=== PATIENT | female | born 1985 | race Caucasian/White ===

== ENCOUNTER 2017-11-06 06:13 | Day surgery (SDC) | payer OTHER, MEDICAID, SELFPAY ==
[2017-10-28 10:47] VITALS: BMI 25.0
[2017-11-06] VITALS (9 sets, daily range): BP systolic 94–142; BP diastolic 60–81; PULSE 53–87; RESP 12–20; TEMP 36.1–36.3; O2SAT 97–100; BMI 25.0
[2017-11-06] MEDS: LACTATED RINGERS 1,000 ML 42 ML IV (07:30)
--- NOTE | 2017-11-06 07:36 | PM.PREOP ---
Pre-operative Note Interval Note Pre-op Check: Yes History & Physical Reviewed by Physician Changes: No
--- NOTE | 2017-11-06 07:36 | PM.OP.1 ---
Operative Date/Time/Diagnoses Date of procedure: 11/06/17 Time of procedure: 08:00 Pre-op diagnosis: Left painful tibialis posterior tendonitis with bone fragment foot Procedure & Clinicians Indications: Painful accessory navicular and posterior tibial tendonitis left foot. Surgeon: Milagros Granados Click Yes if Unassisted: Yes Anesthesia Type: General Operative Notes Closure Type: primary Specimen(s): none sent Implants & Drains: Arthrex 2.7 anchor Estimated Blood Loss (mL): 30 Blood products transfused: none Tourniquet time (min): 53 Procedure in detail: The patient was brought to the operating room and placed on the operating table in the supine position tourniquet was placed about the thigh. Well padded appropriately aligned. After induction of general anesthesia the foot and ankle were prepped and draped in the usual aseptic manner. The tourniquet was inflated. After check of anesthesia and incision was made over the medial midfoot at the level of the prominence of the navicular. The incision was deepened through subcutaneous tissues being careful to identify and retract all vital neural and vascular structures. All bleeders were cauterized and ligated as necessary. The posterior tibial tendon insertion point at the navicular was invested within the accessory bone quite extensively. It was gently lifted from the large accessory bone and reflected away. The accessory bone was adhered and using an osteotome I was able to separate this from the larger main bone and remove the accessory. With the aid of a C-arm IA verified the remaining amount of medial navicular and decided to reduce this just a little further again with an osteotome. This also gave me an opportunity to determine the target placement for the anchor. After the insertion of the K-wire this allowed for a hole to start and the anchor was gently delivered in. It easily maintained strength and this was verified on C-arm in terms of location. The posterior tibial tendon had been interrupted due to the removal of the large bone so I was able to anchor in a portions of it with the anchor itself and then going more proximally IA used a mixture of Tycron and Prolene and Vicryl to allow for resestablishment of the tendon. The area was irrigated with copious amounts of normal sterile saline. Tourniquet was deflated, a prompt hyperemic response was seen to the foot. Deep and superficial closure was performed with Vicryl and nylon to the skin. Dressing was placed on the foot and a postoperative boot as well. She was transferred to PACU with vital signs stable and vascular status intact. Following a period of postoperative monitoring the patient will be discharged home on written and oral postoperative instructions including keeping the dressing dry and intact, avoiding ambulation to the foot x3 weeks, icing and elevating the foot when seated at home. DVT prevention techniques have been reviewed. After suture removal and approximately 3 weeks she will be able to begin some partial weight-bearing , and physical therapy starts around week 4. Complications: none Condition: stable Disposition: PACU
[2017-11-06] MEDS: CEFAZOLIN VIAL 1 GM in SODIUM CHLORIDE 0.9% 100 ML 200 ML IV (07:50)
[2017-11-06] MEDS: BUPIVACAINE 0.5% (PF) VIAL 30 ML INJ (08:15)
--- NOTE | 2017-11-06 08:19 | SUR.OPER ---
Supine on padded OR bed, head on pillow, arms secured on padded arm boards at <90 degrees abduction, legs uncrossed, safety belt at thigh, tape over blanket over lower legs.
[2017-11-06] MEDS: METOCLOPRAMIDE 10 MG/2 ML INJ IV (09:57)
[2017-11-06] MEDS: ePHEDrine 50 MG/ML VIAL 25 MG IV (10:29)
== END 2017-11-06 11:08 | disposition home or self-care (01) ==
PROVIDERS: PCP Nurse Practitioner; Visit Provider Podiatrist
PROC: (CPT 28238; principal; 2017-11-06 07:45)
DX: Q74.2 Other congenital malformations of lower limb(s), including pelvic girdle (principal); M76.822 Posterior tibial tendinitis, left leg; E06.3 Autoimmune thyroiditis; J45.909 Unspecified asthma, uncomplicated; Z87.891 Personal history of nicotine dependence
CPT/HCPCS: 28238; J0690; J1100; J2250; J2405; J2704; J2765; J3010

== ENCOUNTER 2018-02-03 10:30 | Outpatient (RCR) | payer OTHER, MEDICAID, SELFPAY ==
--- NOTE | 2017-12-04 11:55 | PT.OIE ---
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) Constipation (Acute) Fatigue (Acute) Rosacea (Acute) Weight loss, intentional (Acute) Right ankle pain (Chronic 11/08/14) Right ankle sprain (Resolved 11/08/14) Provider Visit Care Team Role Provider Type CARLOS Salomon Primary Care Provider Advanced Ticket Puller Specialty: Medical Address: [address] [place] [address], [id number] Email: Milagros Granados DPM Attending Provider Physician Specialty: Podiatry Address: [address] [place] [address], [id number] Email: [email or web address] Physical Therapy Initial Evaluation PT-OP-A Visit Information Start: 12/04/17 13:36 Freq: Status: Active Protocol: Document 12/04/17 11:55 RCC (Rec: 12/04/17 13:39 RCC [email or web address]) Out-Patient Physical Therapy Visit Information Visit Information Visit Type Initial Evaluation Visit Start Time 11:15 Visit Stop Time 11:55 Total Visit Minutes 40 Visit Number 1 Number of MANAGER OPERATIONS Visits 0 Evaluation Information Evaluation Date 12/04/17 PT-OP-B Current Condition Start: 12/04/17 13:36 Freq: Status: Active Protocol: Document 12/04/17 11:55 RCC (Rec: 12/04/17 17:52 RCC [email or web address]) Current Condition History of Current Condition Onset Date 11/06/17 Current Complaints inability to ambulate, hike History of Current Condition Pt is a 32 y/o female presenting to physical therapy s/p L modified Kidner procedure with navicular anchoring (anchor in place at navicular, surgical repair of posterior tibialis tendon). Surgery was 11/06/2017. Pt notes that she had L medial ankle and foot pain most of my life, and that it got worse as she grew older and had children. She is not currently working. Pt has been NWB in a walking boot since surgery. She uses crutches occasionally, and also uses a knee scooter. Orders to start transitioning to WB in boot, reduce use of AD as strength/ stability permits. Pt would like to get back to hiking again. She has two children but are both of age not requiring being held or carried. Treatment Goals Patient/Caregiver Goals improve walking, get back to hiking. Prior Functional Status Baseline Function- ADL's Independent Baseline Function- Mobility Independent Baseline Function- Gait indep. community ambulator without device Baseline Function- Recreation/Hobbies hiking, backpacking trips. Current Functional Impairments (Reported) Functional Limitations- Mobility/Gait using crutches or knee scooter , no weight bearing Functional Limitations- Recreation/ unable Hobbies PT-OP-C Subjective Start: 12/04/17 13:36 Freq: Status: Active Protocol: Document 12/04/17 11:55 RCC (Rec: 12/04/17 17:52 [facility] [email or web address]) OP-PT Subjective Patient Comments Patient Comments pt denies pain, she notes soreness after WB but not pain in L foot/ankle. Patient Questionnaires Lower Extremity Functional Scale LEFS Score 32 PT-OP-F Manual Assessment Start: 12/04/17 13:36 Freq: Status: Active Protocol: Document 12/04/17 11:55 RCC (Rec: 12/04/17 17:52 RCC [email or web address]) Manual Assessments Soft Tissue Assessment Soft Tissue Mobility Assessment TTP: L posterior tibialis muscle belly, plantar fascia PT-OP-G Mobility & Gait Start: 12/04/17 13:36 Freq: Status: Active Protocol: Document 12/04/17 11:55 RCC (Rec: 12/04/17 17:52 RCC [email or web address]) OP Mobility Evaluation Transfers Sit to Stand indep. NWB LLE Bed to Chair Transfers indep. OP Gait Assessment Gait Gait Assistance Required: Standby Assistance Distance (Feet) 100 Able to Maintain Weight Bearing Status Yes During Gait Assistive Devices Assistive Device Axillary Crutches Orthotic/Prosthetic Devices or Brace: Yes Gait Deviations General Gait Pattern Decreased Stride Length Decreased Feet Clearance Factors Limiting Gait Function Factors Limiting Gait Function Decreased Activity Tolerance Decreased Strength Comments Gait Comments pt able to ambulate with WB on the LLE and bilateral axillary crutches in the clinic. No pain. VC for sequencing PT-OP-H Neuro Start: 12/04/17 13:36 Freq: Status: Active Protocol: Document 12/04/17 11:55 RCC (Rec: 12/04/17 17:52 RCC [email or web address]) Sensation Evaluation Gross Sensation Gross Sensation WNL PT-OP-K Range of Motion Start: 12/04/17 13:36 Freq: Status: Active Protocol: Document 12/04/17 11:55 RCC (Rec: 12/04/17 17:52 RCC [email or web address]) Ankle and Foot Goniometric Range of Motion Ankle and Foot Measured in Degrees Right Active Ankle/Foot ROM WFL Yes Ankle and Foot ROM Limitations Comments L ankle ROM not tested due to recent surgery. PT-OP-M Strength Start: 12/04/17 13:36 Freq: Status: Active Protocol: Document 12/04/17 11:55 RCC (Rec: 12/04/17 17:52 RCC [email or web address]) Hip Strength Hip Manual Muscle Testing Left Flexion (L2) 4 Good Adduction 4 Good External Rotation 3+ Fair+ Internal Rotation 3+ Fair+ Right Flexion (L2) 5 Normal Adduction 5 Normal External Rotation 4 Good Internal Rotation 4+ Good+ Knee Strength Knee Manual Muscle Testing Left Flexion (S2) 4 Good Extension (L3) 4 Good Right Flexion (S2) 5 Normal Extension (L3) 5 Normal Ankle/Foot Strength Ankle and Foot Manual Muscle Testing Left Comments not tested due to recent surgery Right Dorsiflexion (L4) 5 Normal Inversion 5 Normal Eversion (S1) 5 Normal PT-OP-Q Treatments Start: 12/04/17 13:36 Freq: Status: Active Protocol: Document 12/04/17 11:55 RCC (Rec: 12/04/17 17:52 RCC [email or web address]) Therapeutic Exercises Sidelying Exercises toe curls Sidelying Exercise Name toe curls in walking boot Side left Comments gentle reverse clamshells Side left Reps/Minutes 10 clamshells Side left Reps/Minutes 10 Gait Training Gait Activity 1 Device Used B axillary crutches Level of Assistance SBA Surface level Distance/Duration 100 ft Treatment Focus WB on LLE in boot, posture, gait to tolerance PT-OP-T Assessment and Plan Start: 12/04/17 13:36 Freq: Status: Active Protocol: Document 12/04/17 11:55 RCC (Rec: 12/04/17 17:52 RCC [email or web address]) Physical Therapy Assessment Rehab Potential Rehabilitation Potential Excellent Evaluation Complexity Number of Personal Factors/Comorbidities 1-2 Number of Body Systems Impaired 4 or More Clinical Presentation at Evaluation Stable Impairments Impairments Activity Tolerance Balance Functional Activities Gait ROM Soft Tissue Mobility Strength Other Concerns Barriers to Rehabilitation procedure type; insurance limitations (1 eval and 24 units pcy) Goals hiking Impairment hiking/recreational activities Ceramic Painter Goal (LTG) Pt to return to low level hiking without restriction prior to d/c. LTG Duration 12 weeks ROM Ceramic Painter Goal (LTG) L ankle ROM equal to R ankle ROM (WNL) for tolerating uneven terrain prior to d/c. LTG Duration 12 weeks gait Impairment gait tolerance/ability Short Term Goal (STG) Gait in walking boot without AD. STG Duration 6 weeks Ceramic Painter Goal (LTG) Gait without AD or walking boot. LTG Duration 12 weeks LEFS Impairment Lower Extremity Functional Scale Short Term Goal (STG) 60% or greater to demonstrate improvements with functional mobility and tolerance STG Duration 6 weeks Ceramic Painter Goal (LTG) 70% or greater to demonstrate improvements with functional mobility and tolerance LTG Duration 12 weeks Assessment Summary Assessment Pt is post-operative 4 weeks L modified Kidner procedure with navicular anchoring. Pt at this point had not been WB at all on the LLE, but tolerated gait well today with B axillary crutches and WBAT. She denies pain, but demonstrates R ankle/foot impaired ROM and LE weakness due to immobility, along with impaired gait tolerance. Protocol to begin WB in boot and reduce use of AD as strength/stability permits. Unfortunately, pt has limited insurance availability for this condition, therefore, she may not be able to return to prior level of function (100%) prior to end of her insurance coverage. It is recommended that pt attend physical therapy for at least 12 weeks, but due to insurance not likely to be able to attend for that full amount of time. Pt not taking pain medication at this time. Discussed the importance of cryotherapy with elevation as gait training progresses for pain relief and control of swelling. Physical Therapy Plan Frequency and Duration Frequency of Treatment 2x/Week Duration of Treatment 12 weeks Plan of Care Start Date 12/04/17 Plan of Care End Date 02/26/18 Therapeutic Interventions Therapeutic Interventions Aquatic Therapy Balance Training Gait Training Home Exercise Program Joint Mobilizations Manual Therapy Neuromuscular Re-education Orthotic/Prosthetic Management Patient/Caregiver Education Self-Care/Home Management Soft Tissue Mobilization Taping Therapeutic Activities Therapeutic Exercises Modalities Cold Pack/Ice Massage Electric Stimulation Hot Packs Ultrasound Next Visit Focus/Plan Next Note Type Treatment Note Next Visit Plan confer with pt about MD visit; gentle ankle ROM (ABCs), gait training in walking boot.
--- NOTE | 2017-12-09 09:05 | PT.OTN ---
Current Diagnoses Pain in left foot (12/09/17) Other congenital malformations of lower limb(s), including pelvic girdle (12/09/17) Physical Therapy Treatment Note PT-OP-A Visit Information Start: 12/04/17 13:36 Freq: Status: Active Protocol: Document 12/09/17 09:05 DLM (Rec: 12/09/17 17:53 DLM [email or web address]) Out-Patient Physical Therapy Visit Information Visit Information Visit Type Treatment Note Visit Start Time 09:05 Visit Stop Time 09:55 Total Visit Minutes 50 Visit Number 2 Number of AUTOBODY TECHNICIAN Visits 0 Evaluation Information Evaluation Date 12/04/17 PT-OP-B Current Condition Start: 12/04/17 13:36 Freq: Status: Active Protocol: Document 12/04/17 11:55 RCC (Rec: 12/04/17 17:52 RCC [email or web address]) Current Condition History of Current Condition Onset Date 11/06/17 Current Complaints inability to ambulate, hike History of Current Condition Pt is a 32 y/o female presenting to physical therapy s/p L modified Kidner procedure with navicular anchoring (anchor in place at navicular, surgical repair of posterior tibialis tendon). Surgery was 11/06/2017. Pt notes that she had L medial ankle and foot pain most of my life, and that it got worse as she grew older and had children. She is not currently working. Pt has been NWB in a walking boot since surgery. She uses crutches occasionally, and also uses a knee scooter. Orders to start transitioning to WB in boot, reduce use of AD as strength/ stability permits. Pt would like to get back to hiking again. She has two children but are both of age not requiring being held or carried. Treatment Goals Patient/Caregiver Goals improve walking, get back to hiking. Prior Functional Status Baseline Function- ADL's Independent Baseline Function- Mobility Independent Baseline Function- Gait indep. community ambulator without device Baseline Function- Recreation/Hobbies hiking, backpacking trips. Current Functional Impairments (Reported) Functional Limitations- Mobility/Gait using crutches or knee scooter , no weight bearing Functional Limitations- Recreation/ unable Hobbies PT-OP-C Subjective Start: 12/04/17 13:36 Freq: Status: Active Protocol: Document 12/09/17 09:05 DLM (Rec: 12/09/17 17:53 DLM [email or web address]) OP-PT Subjective Patient Comments Patient Comments she is walking a lot better, no longer using an assistive device, her MD told her 2-3 more weeks in the boot then she can progress to shoes Patient Reported Progress Improving PT-OP-F Manual Assessment Start: 12/04/17 13:36 Freq: Status: Active Protocol: Document 12/04/17 11:55 RCC (Rec: 12/04/17 17:52 RCC [email or web address]) Manual Assessments Soft Tissue Assessment Soft Tissue Mobility Assessment TTP: L posterior tibialis muscle belly, plantar fascia PT-OP-G Mobility & Gait Start: 12/04/17 13:36 Freq: Status: Active Protocol: Document 12/09/17 09:05 DLM (Rec: 12/09/17 17:57 DLM [email or web address]) OP Mobility Evaluation Transfers Sit to Stand independent WBAT left LE, CAM boot Bed to Chair Transfers Independent, CAM boot OP Gait Assessment Gait Gait Assistance Required: Independent Able to Maintain Weight Bearing Status Yes During Gait Assistive Devices Assistive Device None Orthotic/Prosthetic Devices or Brace: Yes Gait Deviations General Gait Pattern Antalgic Factors Limiting Gait Function Factors Limiting Gait Function Decreased Activity Tolerance Decreased Strength Comments Gait Comments no pain reported with WBAT using CAM boot PT-OP-H Neuro Start: 12/04/17 13:36 Freq: Status: Active Protocol: Document 12/04/17 11:55 RCC (Rec: 12/04/17 17:52 RCC [email or web address]) Sensation Evaluation Gross Sensation Gross Sensation WNL PT-OP-K Range of Motion Start: 12/04/17 13:36 Freq: Status: Active Protocol: Document 12/04/17 11:55 RCC (Rec: 12/04/17 17:52 RCC [email or web address]) Ankle and Foot Goniometric Range of Motion Ankle and Foot Measured in Degrees Right Active Ankle/Foot ROM WFL Yes Ankle and Foot ROM Limitations Comments L ankle ROM not tested due to recent surgery. PT-OP-M Strength Start: 12/04/17 13:36 Freq: Status: Active Protocol: Document 12/04/17 11:55 RCC (Rec: 12/04/17 17:52 RCC [email or web address]) Hip Strength Hip Manual Muscle Testing Left Flexion (L2) 4 Good Adduction 4 Good External Rotation 3+ Fair+ Internal Rotation 3+ Fair+ Right Flexion (L2) 5 Normal Adduction 5 Normal External Rotation 4 Good Internal Rotation 4+ Good+ Knee Strength Knee Manual Muscle Testing Left Flexion (S2) 4 Good Extension (L3) 4 Good Right Flexion (S2) 5 Normal Extension (L3) 5 Normal Ankle/Foot Strength Ankle and Foot Manual Muscle Testing Left Comments not tested due to recent surgery Right Dorsiflexion (L4) 5 Normal Inversion 5 Normal Eversion (S1) 5 Normal PT-OP-Q Treatments Start: 12/04/17 13:36 Freq: Status: Active Protocol: Document 12/09/17 09:05 DLM (Rec: 12/09/17 17:53 DLM [email or web address]) Cardio Equipment Recumbent Stepper (Sci-Fit) Duration (Minutes) 8 Resistance 2 Seat Position 9 Other with CAM boot on left LE Therapeutic Exercises Prone Exercises 3 Prone Exercise Name hamstring curls Side left Resistance CAM boot Reps/Minutes x 10 2 Prone Exercise Name hip IR/ER Side left Resistance CAM boot Reps/Minutes x 10 1 Prone Exercise Name hip extension (SLR) Side left Resistance CAM boot Reps/Minutes x 10 Sidelying Exercises toe curls Sidelying Exercise Name toe curls in walking boot Side left Resistance active as tolerated reverse clamshells Side left Reps/Minutes 10 clamshells Side left Reps/Minutes 10 Sitting Exercises 4 Sitting Exercise Name knee extension Side left Resistance CAM boot Reps/Minutes to fatigue 3 Sitting Exercise Name calf stretch open chain with towel Side left Resistance gentle Equipment Used towel Reps/Minutes x 3 reps 2 Sitting Exercise Name ankle pumps Side left Resistance active to pain tolerance Reps/Minutes x 10 1 Sitting Exercise Name alphabet with ankle Side left Resistance active Reps/Minutes 1 set Standing Exercises 1 Standing Exercise Name standing weight shifts onto left without boot Side left Resistance active Reps/Minutes 3 sets Comments gradual progression, wide LONA and slight stagger Self-Care/Home Management Treatment Education Patient Education Home Exercise Program Safety Other Education provided written list of exercises, copy in paper chart PT-OP-R Modalities Start: 12/04/17 13:36 Freq: Status: Active Protocol: Document 12/09/17 09:05 DLM (Rec: 12/09/17 17:54 DLM [email or web address]) Hot Pack/Cold Pack Treatment Cold Pack Location left ankle/foot Patient Position Supine Treatment Duration (minutes) 10 Patient Tolerance Good Comments after activity PT-OP-T Assessment and Plan Start: 12/04/17 13:36 Freq: Status: Active Protocol: Document 12/09/17 09:05 DLM (Rec: 12/09/17 17:53 DLM [email or web address]) Physical Therapy Assessment Progress Towards Goals Progress Towards Goals Progressing Toward Goals Assessment Summary Assessment She is progressing well with her gait and tolerance for WBAT in her CAM boot. She is not longer using an assistive device. She ices at home to manage her pain/swelling at the end of the day. She tolerated her exercises well with mild increase in soreness as she fatigued. Will monitor her response to her exercise progression. Physical Therapy Plan Frequency and Duration Frequency of Treatment 2x/Week Duration of Treatment 12 weeks Plan of Care Start Date 12/04/17 Plan of Care End Date 02/26/18 Therapeutic Interventions Other Therapeutic Interventions progress per surgeon protocal/ orders Next Visit Focus/Plan Next Note Type Treatment Note Next Visit Plan gentle exercises with preparation for being progressed out of CAM boot to a shoe with or without an ankle brace
--- NOTE | 2017-12-11 11:12 | PT.OTN ---
Current Diagnoses Pain in left foot (12/11/17) Other congenital malformations of lower limb(s), including pelvic girdle (12/11/17) Physical Therapy Treatment Note PT-OP-A Visit Information Start: 12/04/17 13:36 Freq: Status: Active Protocol: Document 12/11/17 10:30 DCW (Rec: 12/11/17 11:12 DCW [id number]) Out-Patient Physical Therapy Visit Information Visit Information Visit Type Treatment Note Visit Start Time 10:30 Visit Stop Time 11:21 Total Visit Minutes 51 Visit Number 3 Number of CONTINUOUS MINING OPERATOR Visits 0 Evaluation Information Evaluation Date 12/04/17 PT-OP-B Current Condition Start: 12/04/17 13:36 Freq: Status: Active Protocol: Document 12/04/17 11:55 RCC (Rec: 12/04/17 17:52 RCC [email or web address]) Current Condition History of Current Condition Onset Date 11/06/17 Current Complaints inability to ambulate, hike History of Current Condition Pt is a 32 y/o female presenting to physical therapy s/p L modified Kidner procedure with navicular anchoring (anchor in place at navicular, surgical repair of posterior tibialis tendon). Surgery was 11/06/2017. Pt notes that she had L medial ankle and foot pain most of my life, and that it got worse as she grew older and had children. She is not currently working. Pt has been NWB in a walking boot since surgery. She uses crutches occasionally, and also uses a knee scooter. Orders to start transitioning to WB in boot, reduce use of AD as strength/ stability permits. Pt would like to get back to hiking again. She has two children but are both of age not requiring being held or carried. Treatment Goals Patient/Caregiver Goals improve walking, get back to hiking. Prior Functional Status Baseline Function- ADL's Independent Baseline Function- Mobility Independent Baseline Function- Gait indep. community ambulator without device Baseline Function- Recreation/Hobbies hiking, backpacking trips. Current Functional Impairments (Reported) Functional Limitations- Mobility/Gait using crutches or knee scooter , no weight bearing Functional Limitations- Recreation/ unable Hobbies PT-OP-C Subjective Start: 12/04/17 13:36 Freq: Status: Active Protocol: Document 12/11/17 10:30 DCW (Rec: 12/11/17 11:12 DCW [id number]) OP-PT Subjective Patient Comments Patient Comments Pt reports she has only been on her feet without her boot when getting into or out of the shower, but uses a trekking pole to limit weight bearing. PT-OP-F Manual Assessment Start: 12/04/17 13:36 Freq: Status: Active Protocol: Document 12/04/17 11:55 RCC (Rec: 12/04/17 17:52 RCC [email or web address]) Manual Assessments Soft Tissue Assessment Soft Tissue Mobility Assessment TTP: L posterior tibialis muscle belly, plantar fascia PT-OP-G Mobility & Gait Start: 12/04/17 13:36 Freq: Status: Active Protocol: Document 12/09/17 09:05 DLM (Rec: 12/09/17 17:57 DLM [email or web address]) OP Mobility Evaluation Transfers Sit to Stand independent WBAT left LE, CAM boot Bed to Chair Transfers Independent, CAM boot OP Gait Assessment Gait Gait Assistance Required: Independent Able to Maintain Weight Bearing Status Yes During Gait Assistive Devices Assistive Device None Orthotic/Prosthetic Devices or Brace: Yes Gait Deviations General Gait Pattern Antalgic Factors Limiting Gait Function Factors Limiting Gait Function Decreased Activity Tolerance Decreased Strength Comments Gait Comments no pain reported with WBAT using CAM boot PT-OP-H Neuro Start: 12/04/17 13:36 Freq: Status: Active Protocol: Document 12/04/17 11:55 RCC (Rec: 12/04/17 17:52 RCC [email or web address]) Sensation Evaluation Gross Sensation Gross Sensation WNL PT-OP-K Range of Motion Start: 12/04/17 13:36 Freq: Status: Active Protocol: Document 12/04/17 11:55 RCC (Rec: 12/04/17 17:52 RCC [email or web address]) Ankle and Foot Goniometric Range of Motion Ankle and Foot Measured in Degrees Right Active Ankle/Foot ROM WFL Yes Ankle and Foot ROM Limitations Comments L ankle ROM not tested due to recent surgery. PT-OP-M Strength Start: 12/04/17 13:36 Freq: Status: Active Protocol: Document 12/04/17 11:55 RCC (Rec: 12/04/17 17:52 RCC [email or web address]) Hip Strength Hip Manual Muscle Testing Left Flexion (L2) 4 Good Adduction 4 Good External Rotation 3+ Fair+ Internal Rotation 3+ Fair+ Right Flexion (L2) 5 Normal Adduction 5 Normal External Rotation 4 Good Internal Rotation 4+ Good+ Knee Strength Knee Manual Muscle Testing Left Flexion (S2) 4 Good Extension (L3) 4 Good Right Flexion (S2) 5 Normal Extension (L3) 5 Normal Ankle/Foot Strength Ankle and Foot Manual Muscle Testing Left Comments not tested due to recent surgery Right Dorsiflexion (L4) 5 Normal Inversion 5 Normal Eversion (S1) 5 Normal PT-OP-Q Treatments Start: 12/04/17 13:36 Freq: Status: Active Protocol: Document 12/11/17 10:30 DCW (Rec: 12/11/17 11:12 DCW [id number]) Cardio Equipment Recumbent Stepper (Sci-Fit) Duration (Minutes) 6 Resistance 3 Seat Position 9 Other with CAM boot on left LE Therapeutic Exercises Sitting Exercises 8 Sitting Exercise Name Intrinsic toe flexon - Marbles Side left 7 Sitting Exercise Name Ankle Inversion/Eversion Side left Resistance Lv 1 Equipment Used T-band Comments pain-free 6 Sitting Exercise Name Ankle PF/DF Side left Resistance Lv 1 Equipment Used T-band Comments pain-free 5 Sitting Exercise Name BAPS Side left Comments PF/DF, Inv/Ev, CW/CCW Standing Exercises 1 Standing Exercise Name standing weight shifts onto left without boot Side left Resistance active Reps/Minutes 3 sets Comments solid ground and red mat - gradual progression, wide LONA and slight stagger Manual Therapy Treatment Manual Techniques 3 Type PROM Forefoot Inv/Ev Body Position Sitting 2 Type PROM Ankle Inversion/Eversion Body Position Sitting 1 Type PROM Ankle PF/DF Body Position Sitting PT-OP-R Modalities Start: 12/04/17 13:36 Freq: Status: Active Protocol: Document 12/11/17 10:30 DCW (Rec: 12/11/17 11:12 DCW [id number]) Hot Pack/Cold Pack Treatment Cold Pack Location left ankle/foot Patient Position Supine Treatment Duration (minutes) 10 Patient Tolerance Good Comments after activity PT-OP-T Assessment and Plan Start: 12/04/17 13:36 Freq: Status: Active Protocol: Document 12/11/17 10:30 DCW (Rec: 12/11/17 11:12 DCW [id number]) Physical Therapy Assessment Impairments Impairments Activity Tolerance Balance Functional Activities Gait ROM Soft Tissue Mobility Strength Goals hiking Impairment hiking/recreational activities [facility] Goal (LTG) Pt to return to low level hiking without restriction prior to d/c. LTG Duration 12 weeks ROM [facility] Goal (LTG) L ankle ROM equal to R ankle ROM (WNL) for tolerating uneven terrain prior to d/c. LTG Duration 12 weeks gait Impairment gait tolerance/ability Short Term Goal (STG) Gait in walking boot without AD. STG Duration 6 weeks [facility] Goal (LTG) Gait without AD or walking boot. LTG Duration 12 weeks LEFS Impairment Lower Extremity Functional Scale Short Term Goal (STG) 60% or greater to demonstrate improvements with functional mobility and tolerance STG Duration 6 weeks [facility] Goal (LTG) 70% or greater to demonstrate improvements with functional mobility and tolerance LTG Duration 12 weeks Progress Towards Goals Progress Towards Goals Progressing Toward Goals Assessment Summary Assessment Pt tolerated activity today without her CAM boot, no complaints of pain or difficulty with any new exercise, reported manual PROM helped decrease feeling of stiffness Physical Therapy Plan Frequency and Duration Frequency of Treatment 2x/Week Duration of Treatment 12 weeks Plan of Care Start Date 12/04/17 Plan of Care End Date 02/26/18 Therapeutic Interventions Therapeutic Interventions Aquatic Therapy Balance Training Gait Training Home Exercise Program Joint Mobilizations Manual Therapy Neuromuscular Re-education Orthotic/Prosthetic Management Patient/Caregiver Education Self-Care/Home Management Soft Tissue Mobilization Taping Therapeutic Activities Therapeutic Exercises Modalities Cold Pack/Ice Massage Electric Stimulation Hot Packs Ultrasound Other Therapeutic Interventions progress per surgeon protocal/ orders Next Visit Focus/Plan Next Note Type Treatment Note Next Visit Plan Progression of non-CAM boot weight-bearing
--- NOTE | 2017-12-17 11:29 | PT.OTN ---
Current Diagnoses Pain in left foot (12/17/17) Other congenital malformations of lower limb(s), including pelvic girdle (12/17/17) Physical Therapy Treatment Note PT-OP-A Visit Information Start: 12/04/17 13:36 Freq: Status: Active Protocol: Document 12/17/17 10:27 [facility] (Rec: 12/17/17 11:29 [facility] [id number]) Out-Patient Physical Therapy Visit Information Visit Information Visit Type Treatment Note Visit Start Time 10:30 Visit Stop Time 11:25 Total Visit Minutes 55 Visit Number 4 Number of WATER TREATMENT PLANT SUPERVISOR Visits 0 PT-OP-B Current Condition Start: 12/04/17 13:36 Freq: Status: Active Protocol: Document 12/04/17 11:55 RCC (Rec: 12/04/17 17:52 RCC [email or web address]) Current Condition History of Current Condition Onset Date 11/06/17 Current Complaints inability to ambulate, hike History of Current Condition Pt is a 32 y/o female presenting to physical therapy s/p L modified Kidner procedure with navicular anchoring (anchor in place at navicular, surgical repair of posterior tibialis tendon). Surgery was 11/06/2017. Pt notes that she had L medial ankle and foot pain most of my life, and that it got worse as she grew older and had children. She is not currently working. Pt has been NWB in a walking boot since surgery. She uses crutches occasionally, and also uses a knee scooter. Orders to start transitioning to WB in boot, reduce use of AD as strength/ stability permits. Pt would like to get back to hiking again. She has two children but are both of age not requiring being held or carried. Treatment Goals Patient/Caregiver Goals improve walking, get back to hiking. Prior Functional Status Baseline Function- ADL's Independent Baseline Function- Mobility Independent Baseline Function- Gait indep. community ambulator without device Baseline Function- Recreation/Hobbies hiking, backpacking trips. Current Functional Impairments (Reported) Functional Limitations- Mobility/Gait using crutches or knee scooter , no weight bearing Functional Limitations- Recreation/ unable Hobbies PT-OP-C Subjective Start: 12/04/17 13:36 Freq: Status: Active Protocol: Document 12/17/17 10:27 [facility] (Rec: 12/17/17 11:29 [facility] [id number]) OP-PT Subjective Patient Comments Patient Comments Pt asking when she can get out of boot. PT-OP-F Manual Assessment Start: 12/04/17 13:36 Freq: Status: Active Protocol: Document 12/04/17 11:55 RCC (Rec: 12/04/17 17:52 RCC [email or web address]) Manual Assessments Soft Tissue Assessment Soft Tissue Mobility Assessment TTP: L posterior tibialis muscle belly, plantar fascia PT-OP-G Mobility & Gait Start: 12/04/17 13:36 Freq: Status: Active Protocol: Document 12/09/17 09:05 DLM (Rec: 12/09/17 17:57 DLM [email or web address]) OP Mobility Evaluation Transfers Sit to Stand independent WBAT left LE, CAM boot Bed to Chair Transfers Independent, CAM boot OP Gait Assessment Gait Gait Assistance Required: Independent Able to Maintain Weight Bearing Status Yes During Gait Assistive Devices Assistive Device None Orthotic/Prosthetic Devices or Brace: Yes Gait Deviations General Gait Pattern Antalgic Factors Limiting Gait Function Factors Limiting Gait Function Decreased Activity Tolerance Decreased Strength Comments Gait Comments no pain reported with WBAT using CAM boot PT-OP-H Neuro Start: 12/04/17 13:36 Freq: Status: Active Protocol: Document 12/04/17 11:55 RCC (Rec: 12/04/17 17:52 RCC [email or web address]) Sensation Evaluation Gross Sensation Gross Sensation WNL PT-OP-K Range of Motion Start: 12/04/17 13:36 Freq: Status: Active Protocol: Document 12/04/17 11:55 RCC (Rec: 12/04/17 17:52 RCC [email or web address]) Ankle and Foot Goniometric Range of Motion Ankle and Foot Measured in Degrees Right Active Ankle/Foot ROM WFL Yes Ankle and Foot ROM Limitations Comments L ankle ROM not tested due to recent surgery. PT-OP-M Strength Start: 12/04/17 13:36 Freq: Status: Active Protocol: Document 12/04/17 11:55 RCC (Rec: 12/04/17 17:52 RCC [email or web address]) Hip Strength Hip Manual Muscle Testing Left Flexion (L2) 4 Good Adduction 4 Good External Rotation 3+ Fair+ Internal Rotation 3+ Fair+ Right Flexion (L2) 5 Normal Adduction 5 Normal External Rotation 4 Good Internal Rotation 4+ Good+ Knee Strength Knee Manual Muscle Testing Left Flexion (S2) 4 Good Extension (L3) 4 Good Right Flexion (S2) 5 Normal Extension (L3) 5 Normal Ankle/Foot Strength Ankle and Foot Manual Muscle Testing Left Comments not tested due to recent surgery Right Dorsiflexion (L4) 5 Normal Inversion 5 Normal Eversion (S1) 5 Normal PT-OP-Q Treatments Start: 12/04/17 13:36 Freq: Status: Active Protocol: Document 12/17/17 10:27 [facility] (Rec: 12/17/17 11:29 [facility] [id number]) Cardio Equipment Recumbent Stepper (Sci-Fit) Duration (Minutes) 6 Resistance 3 Seat Position 9 Other with CAM boot on left LE Therapeutic Exercises Sitting Exercises 9 Sitting Exercise Name towel scrunches 8 Sitting Exercise Name Intrinsic toe flexon - Marbles Side left 7 Sitting Exercise Name Ankle Inversion/Eversion Side left Resistance Lv 2 Equipment Used T-band Reps/Minutes 20 Comments pain-free 6 Sitting Exercise Name ankle PF knee flexed & straight Side left Resistance Lv 3 Equipment Used T-band Reps/Minutes 20 Comments pain-free 5 Sitting Exercise Name BAPS Side left Comments PF/DF, Inv/Ev, CW/CCW 4 Sitting Exercise Name ankle DF Side left Equipment Used Lvl 2 Reps/Minutes tband Comments 20 Manual Therapy Treatment Soft Tissue Mobilization 1 Body Location lat lower leg Mobilization Type Myofascial Release Comments w/inversion 2 Body Location ant mutsafa & ankle Mobilization Type Myofascial Release Intensity/Depth Superficial Comments w/DF/PF Manual Techniques 4 Type c/r stretch into DF w/knee ext PT-OP-R Modalities Start: 12/04/17 13:36 Freq: Status: Active Protocol: Document 12/17/17 10:27 [facility] (Rec: 12/17/17 11:29 [facility] [id number]) Hot Pack/Cold Pack Treatment Cold Pack Location left ankle/foot Patient Position Supine Treatment Duration (minutes) 10 Patient Tolerance Good Comments after activity PT-OP-T Assessment and Plan Start: 12/04/17 13:36 Freq: Status: Active Protocol: Document 12/17/17 10:27 [facility] (Rec: 12/17/17 11:29 [facility] [id number]) Physical Therapy Assessment Goals hiking Impairment hiking/recreational activities [employer] Batting Worker Goal (LTG) Pt to return to low level hiking without restriction prior to d/c. LTG Duration 12 weeks ROM [employer]ting Worker Goal (LTG) L ankle ROM equal to R ankle ROM (WNL) for tolerating uneven terrain prior to d/c. LTG Duration 12 weeks gait Impairment gait tolerance/ability Short Term Goal (STG) Gait in walking boot without AD. STG Duration 6 weeks Custodial Goal (LTG) Gait without AD or walking boot. LTG Duration 12 weeks LEFS Impairment Lower Extremity Functional Scale Short Term Goal (STG) 60% or greater to demonstrate improvements with functional mobility and tolerance STG Duration 6 weeks [employer] Batting Worker Goal (LTG) 70% or greater to demonstrate improvements with functional mobility and tolerance LTG Duration 12 weeks Assessment Summary Assessment Pt able to tolerate increase in resistance with tband. MD office called re: pt's WB w/o boot and MD was not in. Instructed to keep pt WB in boot until appointment next week. Requested call back tomorrow re: transitioning out . Improved ROM into DF after c /r stretching Physical Therapy Plan Frequency and Duration Frequency of Treatment 2x/Week Duration of Treatment 12 weeks Plan of Care Start Date 12/04/17 Plan of Care End Date 02/26/18 Next Visit Focus/Plan Next Note Type Treatment Note Next Visit Plan gentle exercises with preparation for being progressed out of CAM boot to a shoe with or without an ankle brace; cont ankle strengthening
--- NOTE | 2017-12-18 11:03 | PT.OTN ---
Current Diagnoses Pain in left foot (12/18/17) Other congenital malformations of lower limb(s), including pelvic girdle (12/18/17) Physical Therapy Treatment Note PT-OP-A Visit Information Start: 12/04/17 13:36 Freq: Status: Active Protocol: Document 12/18/17 10:30 DCW (Rec: 12/18/17 11:03 DCW [id number]) Out-Patient Physical Therapy Visit Information Visit Information Visit Type Treatment Note Visit Note Ended early to conserve remaining units. Visit Start Time 10:30 Visit Stop Time 11:05 Total Visit Minutes 35 Visit Number 5 Number of VISITING PROFESSOR Visits 0 Evaluation Information Evaluation Date 12/04/17 PT-OP-B Current Condition Start: 12/04/17 13:36 Freq: Status: Active Protocol: Document 12/04/17 11:55 RCC (Rec: 12/04/17 17:52 RCC [email or web address]) Current Condition History of Current Condition Onset Date 11/06/17 Current Complaints inability to ambulate, hike History of Current Condition Pt is a 32 y/o female presenting to physical therapy s/p L modified Kidner procedure with navicular anchoring (anchor in place at navicular, surgical repair of posterior tibialis tendon). Surgery was 11/06/2017. Pt notes that she had L medial ankle and foot pain most of my life, and that it got worse as she grew older and had children. She is not currently working. Pt has been NWB in a walking boot since surgery. She uses crutches occasionally, and also uses a knee scooter. Orders to start transitioning to WB in boot, reduce use of AD as strength/ stability permits. Pt would like to get back to hiking again. She has two children but are both of age not requiring being held or carried. Treatment Goals Patient/Caregiver Goals improve walking, get back to hiking. Prior Functional Status Baseline Function- ADL's Independent Baseline Function- Mobility Independent Baseline Function- Gait indep. community ambulator without device Baseline Function- Recreation/Hobbies hiking, backpacking trips. Current Functional Impairments (Reported) Functional Limitations- Mobility/Gait using crutches or knee scooter , no weight bearing Functional Limitations- Recreation/ unable Hobbies PT-OP-C Subjective Start: 12/04/17 13:36 Freq: Status: Active Protocol: Document 12/18/17 10:30 DCW (Rec: 12/18/17 11:03 DCW [id number]) OP-PT Subjective Patient Comments Patient Comments Pt reports her foot has been just fine recently. PT-OP-F Manual Assessment Start: 12/04/17 13:36 Freq: Status: Active Protocol: Document 12/04/17 11:55 RCC (Rec: 12/04/17 17:52 RCC [email or web address]) Manual Assessments Soft Tissue Assessment Soft Tissue Mobility Assessment TTP: L posterior tibialis muscle belly, plantar fascia PT-OP-G Mobility & Gait Start: 12/04/17 13:36 Freq: Status: Active Protocol: Document 12/09/17 09:05 DLM (Rec: 12/09/17 17:57 DLM [email or web address]) OP Mobility Evaluation Transfers Sit to Stand independent WBAT left LE, CAM boot Bed to Chair Transfers Independent, CAM boot OP Gait Assessment Gait Gait Assistance Required: Independent Able to Maintain Weight Bearing Status Yes During Gait Assistive Devices Assistive Device None Orthotic/Prosthetic Devices or Brace: Yes Gait Deviations General Gait Pattern Antalgic Factors Limiting Gait Function Factors Limiting Gait Function Decreased Activity Tolerance Decreased Strength Comments Gait Comments no pain reported with WBAT using CAM boot PT-OP-H Neuro Start: 12/04/17 13:36 Freq: Status: Active Protocol: Document 12/04/17 11:55 RCC (Rec: 12/04/17 17:52 RCC [email or web address]) Sensation Evaluation Gross Sensation Gross Sensation WNL PT-OP-K Range of Motion Start: 12/04/17 13:36 Freq: Status: Active Protocol: Document 12/04/17 11:55 RCC (Rec: 12/04/17 17:52 RCC [email or web address]) Ankle and Foot Goniometric Range of Motion Ankle and Foot Measured in Degrees Right Active Ankle/Foot ROM WFL Yes Ankle and Foot ROM Limitations Comments L ankle ROM not tested due to recent surgery. PT-OP-M Strength Start: 12/04/17 13:36 Freq: Status: Active Protocol: Document 12/04/17 11:55 RCC (Rec: 12/04/17 17:52 RCC [email or web address]) Hip Strength Hip Manual Muscle Testing Left Flexion (L2) 4 Good Adduction 4 Good External Rotation 3+ Fair+ Internal Rotation 3+ Fair+ Right Flexion (L2) 5 Normal Adduction 5 Normal External Rotation 4 Good Internal Rotation 4+ Good+ Knee Strength Knee Manual Muscle Testing Left Flexion (S2) 4 Good Extension (L3) 4 Good Right Flexion (S2) 5 Normal Extension (L3) 5 Normal Ankle/Foot Strength Ankle and Foot Manual Muscle Testing Left Comments not tested due to recent surgery Right Dorsiflexion (L4) 5 Normal Inversion 5 Normal Eversion (S1) 5 Normal PT-OP-Q Treatments Start: 12/04/17 13:36 Freq: Status: Active Protocol: Document 12/18/17 10:30 DCW (Rec: 12/18/17 11:03 DCW [id number]) Cardio Equipment Recumbent Stepper (Sci-Fit) Duration (Minutes) 5 Resistance 1 Seat Position 7 Other without CAM boot Therapeutic Exercises Sitting Exercises 5 Sitting Exercise Name BAPS Side left Resistance Lv 4 Comments PF/DF, Inv/Ev, CW/CCW Standing Exercises 2 Standing Exercise Name Heel raises Side bilateral Comments 25% weight on L 1 Standing Exercise Name standing weight shifts onto left without boot Side left Resistance active Reps/Minutes 3 sets Comments solid ground and red mat - gradual progression, wide LONA and slight stagger Manual Therapy Treatment Manual Techniques 3 Type PROM Forefoot Inv/Ev Body Position Sitting 2 Type PROM Ankle Inversion/Eversion Body Position Sitting 1 Type PROM Ankle PF/DF Body Position Sitting PT-OP-T Assessment and Plan Start: 12/04/17 13:36 Freq: Status: Active Protocol: Document 12/18/17 10:30 DCW (Rec: 12/18/17 11:03 DCW [id number]) Physical Therapy Assessment Impairments Impairments Activity Tolerance Balance Functional Activities Gait ROM Soft Tissue Mobility Strength Goals hiking Impairment hiking/recreational activities Art Director Goal (LTG) Pt to return to low level hiking without restriction prior to d/c. LTG Duration 12 weeks ROM [facility] Goal (LTG) L ankle ROM equal to R ankle ROM (WNL) for tolerating uneven terrain prior to d/c. LTG Duration 12 weeks gait Impairment gait tolerance/ability Short Term Goal (STG) Gait in walking boot without AD. STG Duration 6 weeks Art Director Goal (LTG) Gait without AD or walking boot. LTG Duration 12 weeks LEFS Impairment Lower Extremity Functional Scale Short Term Goal (STG) 60% or greater to demonstrate improvements with functional mobility and tolerance STG Duration 6 weeks Art Director Goal (LTG) 70% or greater to demonstrate improvements with functional mobility and tolerance LTG Duration 12 weeks Progress Towards Goals Progress Towards Goals Progressing Toward Goals Assessment Summary Assessment Decreased appointment time today and canceled one of pt's appointments next week in order to save some approved units for after she is allowed to walk without her boot. Physical Therapy Plan Frequency and Duration Frequency of Treatment 2x/Week Duration of Treatment 12 weeks Plan of Care Start Date 12/04/17 Plan of Care End Date 02/26/18 Therapeutic Interventions Therapeutic Interventions Aquatic Therapy Balance Training Gait Training Home Exercise Program Joint Mobilizations Manual Therapy Neuromuscular Re-education Orthotic/Prosthetic Management Patient/Caregiver Education Self-Care/Home Management Soft Tissue Mobilization Taping Therapeutic Activities Therapeutic Exercises Modalities Cold Pack/Ice Massage Electric Stimulation Hot Packs Ultrasound Other Therapeutic Interventions progress per surgeon protocal/ orders Next Visit Focus/Plan Next Note Type Treatment Note Next Visit Plan Progression of non-CAM boot weight-bearing
--- NOTE | 2017-12-24 11:47 | PT.OTN ---
Current Diagnoses Pain in left foot (12/24/17) Other congenital malformations of lower limb(s), including pelvic girdle (12/24/17) Physical Therapy Treatment Note PT-OP-A Visit Information Start: 12/04/17 13:36 Freq: Status: Active Protocol: Document 12/24/17 10:20 GGD (Rec: 12/24/17 11:47 GGD [email or web address]) Out-Patient Physical Therapy Visit Information Visit Information Visit Type Treatment Note Visit Note Ended early to conserve remaining units. Visit Start Time 09:50 Visit Stop Time 10:20 Total Visit Minutes 30 Visit Number 6 Number of CELLOPHANER Visits 1 Evaluation Information Evaluation Date 12/04/17 PT-OP-B Current Condition Start: 12/04/17 13:36 Freq: Status: Active Protocol: Document 12/04/17 11:55 RCC (Rec: 12/04/17 17:52 RCC [email or web address]) Current Condition History of Current Condition Onset Date 11/06/17 Current Complaints inability to ambulate, hike History of Current Condition Pt is a 32 y/o female presenting to physical therapy s/p L modified Kidner procedure with navicular anchoring (anchor in place at navicular, surgical repair of posterior tibialis tendon). Surgery was 11/06/2017. Pt notes that she had L medial ankle and foot pain most of my life, and that it got worse as she grew older and had children. She is not currently working. Pt has been NWB in a walking boot since surgery. She uses crutches occasionally, and also uses a knee scooter. Orders to start transitioning to WB in boot, reduce use of AD as strength/ stability permits. Pt would like to get back to hiking again. She has two children but are both of age not requiring being held or carried. Treatment Goals Patient/Caregiver Goals improve walking, get back to hiking. Prior Functional Status Baseline Function- ADL's Independent Baseline Function- Mobility Independent Baseline Function- Gait indep. community ambulator without device Baseline Function- Recreation/Hobbies hiking, backpacking trips. Current Functional Impairments (Reported) Functional Limitations- Mobility/Gait using crutches or knee scooter , no weight bearing Functional Limitations- Recreation/ unable Hobbies PT-OP-C Subjective Start: 12/04/17 13:36 Freq: Status: Active Protocol: Document 12/24/17 10:20 GGD (Rec: 12/24/17 11:47 GGD [email or web address]) OP-PT Subjective Patient Comments Patient Comments Pt homes to be done with boot after MD appointment on Patient Reported Progress Improving PT-OP-F Manual Assessment Start: 12/04/17 13:36 Freq: Status: Active Protocol: Document 12/04/17 11:55 RCC (Rec: 12/04/17 17:52 RCC [email or web address]) Manual Assessments Soft Tissue Assessment Soft Tissue Mobility Assessment TTP: L posterior tibialis muscle belly, plantar fascia PT-OP-G Mobility & Gait Start: 12/04/17 13:36 Freq: Status: Active Protocol: Document 12/09/17 09:05 DLM (Rec: 12/09/17 17:57 DLM [email or web address]) OP Mobility Evaluation Transfers Sit to Stand independent WBAT left LE, CAM boot Bed to Chair Transfers Independent, CAM boot OP Gait Assessment Gait Gait Assistance Required: Independent Able to Maintain Weight Bearing Status Yes During Gait Assistive Devices Assistive Device None Orthotic/Prosthetic Devices or Brace: Yes Gait Deviations General Gait Pattern Antalgic Factors Limiting Gait Function Factors Limiting Gait Function Decreased Activity Tolerance Decreased Strength Comments Gait Comments no pain reported with WBAT using CAM boot PT-OP-H Neuro Start: 12/04/17 13:36 Freq: Status: Active Protocol: Document 12/04/17 11:55 RCC (Rec: 12/04/17 17:52 RCC [email or web address]) Sensation Evaluation Gross Sensation Gross Sensation WNL PT-OP-K Range of Motion Start: 12/04/17 13:36 Freq: Status: Active Protocol: Document 12/04/17 11:55 RCC (Rec: 12/04/17 17:52 RCC [email or web address]) Ankle and Foot Goniometric Range of Motion Ankle and Foot Measured in Degrees Right Active Ankle/Foot ROM WFL Yes Ankle and Foot ROM Limitations Comments L ankle ROM not tested due to recent surgery. PT-OP-M Strength Start: 12/04/17 13:36 Freq: Status: Active Protocol: Document 12/04/17 11:55 RCC (Rec: 12/04/17 17:52 RCC [email or web address]) Hip Strength Hip Manual Muscle Testing Left Flexion (L2) 4 Good Adduction 4 Good External Rotation 3+ Fair+ Internal Rotation 3+ Fair+ Right Flexion (L2) 5 Normal Adduction 5 Normal External Rotation 4 Good Internal Rotation 4+ Good+ Knee Strength Knee Manual Muscle Testing Left Flexion (S2) 4 Good Extension (L3) 4 Good Right Flexion (S2) 5 Normal Extension (L3) 5 Normal Ankle/Foot Strength Ankle and Foot Manual Muscle Testing Left Comments not tested due to recent surgery Right Dorsiflexion (L4) 5 Normal Inversion 5 Normal Eversion (S1) 5 Normal PT-OP-Q Treatments Start: 12/04/17 13:36 Freq: Status: Active Protocol: Document 12/24/17 10:20 GGD (Rec: 12/24/17 11:47 GGD [email or web address]) Cardio Equipment Recumbent Stepper (Sci-Fit) Duration (Minutes) 5 Resistance 1 Seat Position 7 Other without CAM boot Therapeutic Exercises Sitting Exercises 5 Sitting Exercise Name BAPS Side left Resistance Lv 4 Comments PF/DF, Inv/Ev, CW/CCW Standing Exercises 2 Standing Exercise Name Heel raises Side bilateral Comments 25%- 50% weight on L 1 Standing Exercise Name standing weight shifts onto left without boot Side left Resistance active Reps/Minutes 3 sets Comments working to SLS Manual Therapy Treatment Manual Techniques 3 Type PROM Forefoot Inv/Ev Body Position Sitting 2 Type PROM Ankle Inversion/Eversion Body Position Sitting 1 Type PROM Ankle PF/DF Body Position Sitting PT-OP-R Modalities Start: 12/04/17 13:36 Freq: Status: Active Protocol: Document 12/17/17 10:27 [facility] (Rec: 12/17/17 11:29 [facility] [id number]) Hot Pack/Cold Pack Treatment Cold Pack Location left ankle/foot Patient Position Supine Treatment Duration (minutes) 10 Patient Tolerance Good Comments after activity PT-OP-T Assessment and Plan Start: 12/04/17 13:36 Freq: Status: Active Protocol: Document 12/24/17 10:20 GGD (Rec: 12/24/17 11:47 GGD [email or web address]) Physical Therapy Assessment Assessment Summary Assessment Pt improving tolerance to fernando bearing and ROM. She has good tolerance to HEP and complating 1-2x week Physical Therapy Plan Frequency and Duration Frequency of Treatment 2x/Week Duration of Treatment 12 weeks Plan of Care Start Date 12/04/17 Plan of Care End Date 02/26/18 Next Visit Focus/Plan Next Note Type Treatment Note Next Visit Plan Progression of non-CAM boot weight-bearing
--- NOTE | 2018-01-01 17:59 | PT.OTN ---
Current Diagnoses Pain in left foot (01/01/18) Other congenital malformations of lower limb(s), including pelvic girdle (01/01/18) Physical Therapy Treatment Note PT-OP-A Visit Information Start: 12/04/17 13:36 Freq: Status: Active Protocol: Document 01/01/18 16:45 [facility] (Rec: 01/01/18 17:53 [facility] [id number]) Out-Patient Physical Therapy Visit Information Visit Information Visit Type Treatment Note Visit Note Ended early to conserve remaining units. Visit Start Time 10:30 Visit Stop Time 11:05 Total Visit Minutes 35 Visit Number 7 Number of OWNER/OPERATOR Visits 0 PT-OP-B Current Condition Start: 12/04/17 13:36 Freq: Status: Active Protocol: Document 12/04/17 11:55 RCC (Rec: 12/04/17 17:52 RCC [email or web address]) Current Condition History of Current Condition Onset Date 11/06/17 Current Complaints inability to ambulate, hike History of Current Condition Pt is a 32 y/o female presenting to physical therapy s/p L modified Kidner procedure with navicular anchoring (anchor in place at navicular, surgical repair of posterior tibialis tendon). Surgery was 11/06/2017. Pt notes that she had L medial ankle and foot pain most of my life, and that it got worse as she grew older and had children. She is not currently working. Pt has been NWB in a walking boot since surgery. She uses crutches occasionally, and also uses a knee scooter. Orders to start transitioning to WB in boot, reduce use of AD as strength/ stability permits. Pt would like to get back to hiking again. She has two children but are both of age not requiring being held or carried. Treatment Goals Patient/Caregiver Goals improve walking, get back to hiking. Prior Functional Status Baseline Function- ADL's Independent Baseline Function- Mobility Independent Baseline Function- Gait indep. community ambulator without device Baseline Function- Recreation/Hobbies hiking, backpacking trips. Current Functional Impairments (Reported) Functional Limitations- Mobility/Gait using crutches or knee scooter , no weight bearing Functional Limitations- Recreation/ unable Hobbies PT-OP-C Subjective Start: 12/04/17 13:36 Freq: Status: Active Protocol: Document 01/01/18 16:45 [facility] (Rec: 01/01/18 17:53 [facility] [id number]) OP-PT Subjective Patient Comments Patient Comments Pt reports she is cleared to walk without boot and has no restrictions. Was not given a brace. Not much pain except when she was on her feet a lot saturday. She has been wearing her orthotics. PT-OP-F Manual Assessment Start: 12/04/17 13:36 Freq: Status: Active Protocol: Document 12/04/17 11:55 RCC (Rec: 12/04/17 17:52 RCC [email or web address]) Manual Assessments Soft Tissue Assessment Soft Tissue Mobility Assessment TTP: L posterior tibialis muscle belly, plantar fascia PT-OP-G Mobility & Gait Start: 12/04/17 13:36 Freq: Status: Active Protocol: Document 12/09/17 09:05 DLM (Rec: 12/09/17 17:57 DLM [email or web address]) OP Mobility Evaluation Transfers Sit to Stand independent WBAT left LE, CAM boot Bed to Chair Transfers Independent, CAM boot OP Gait Assessment Gait Gait Assistance Required: Independent Able to Maintain Weight Bearing Status Yes During Gait Assistive Devices Assistive Device None Orthotic/Prosthetic Devices or Brace: Yes Gait Deviations General Gait Pattern Antalgic Factors Limiting Gait Function Factors Limiting Gait Function Decreased Activity Tolerance Decreased Strength Comments Gait Comments no pain reported with WBAT using CAM boot PT-OP-H Neuro Start: 12/04/17 13:36 Freq: Status: Active Protocol: Document 12/04/17 11:55 RCC (Rec: 12/04/17 17:52 RCC [email or web address]) Sensation Evaluation Gross Sensation Gross Sensation WNL PT-OP-K Range of Motion Start: 12/04/17 13:36 Freq: Status: Active Protocol: Document 12/04/17 11:55 RCC (Rec: 12/04/17 17:52 RCC [email or web address]) Ankle and Foot Goniometric Range of Motion Ankle and Foot Measured in Degrees Right Active Ankle/Foot ROM WFL Yes Ankle and Foot ROM Limitations Comments L ankle ROM not tested due to recent surgery. PT-OP-M Strength Start: 12/04/17 13:36 Freq: Status: Active Protocol: Document 12/04/17 11:55 RCC (Rec: 12/04/17 17:52 RCC [email or web address]) Hip Strength Hip Manual Muscle Testing Left Flexion (L2) 4 Good Adduction 4 Good External Rotation 3+ Fair+ Internal Rotation 3+ Fair+ Right Flexion (L2) 5 Normal Adduction 5 Normal External Rotation 4 Good Internal Rotation 4+ Good+ Knee Strength Knee Manual Muscle Testing Left Flexion (S2) 4 Good Extension (L3) 4 Good Right Flexion (S2) 5 Normal Extension (L3) 5 Normal Ankle/Foot Strength Ankle and Foot Manual Muscle Testing Left Comments not tested due to recent surgery Right Dorsiflexion (L4) 5 Normal Inversion 5 Normal Eversion (S1) 5 Normal PT-OP-Q Treatments Start: 12/04/17 13:36 Freq: Status: Active Protocol: Document 01/01/18 16:45 [facility] (Rec: 01/01/18 17:58 [facility] [email or web address]) Cardio Equipment Recumbent Stepper (Sci-Fit) Duration (Minutes) 5 Resistance 3 Seat Position 7 Other without CAM boot Gym Equipment Shuttle Recovery Unilateral Heel Raises Resistance 25# Reps/Time 20 Therapeutic Exercises Sitting Exercises 3 Sitting Exercise Name PF Resistance lvl 5 Standing Exercises gastroc stretch Standing Exercise Name fwd lean stretch Reps/Minutes 30 sec gait press at wall Standing Exercise Name gait press at wall for post depression L Reps/Minutes 5 sec hold x3 2 Standing Exercise Name Heel raises Side bilateral Comments shifting as much weight to L especially for decent Manual Therapy Treatment Soft Tissue Mobilization scar Body Location scar Mobilization Type Myofascial Release Rolling Comments w/inversion/eversion Neuro Re-Education Treatment Balance Activities SLS Details in mirror for posture tandem walking Details by rail prn tandem stance Details by counter PT-OP-R Modalities Start: 12/04/17 13:36 Freq: Status: Active Protocol: Document 12/17/17 10:27 [facility] (Rec: 12/17/17 11:29 [facility] [id number]) Hot Pack/Cold Pack Treatment Cold Pack Location left ankle/foot Patient Position Supine Treatment Duration (minutes) 10 Patient Tolerance Good Comments after activity PT-OP-T Assessment and Plan Start: 12/04/17 13:36 Freq: Status: Active Protocol: Document 01/01/18 16:45 [facility] (Rec: 01/01/18 17:53 [facility] [id number]) Physical Therapy Assessment Goals hiking Impairment hiking/recreational activities High [employer] Counselor Goal (LTG) Pt to return to low level hiking without restriction prior to d/c. LTG Duration 12 weeks ROM Half-Way Goal (LTG) L ankle ROM equal to R ankle ROM (WNL) for tolerating uneven terrain prior to d/c. LTG Duration 12 weeks gait Impairment gait tolerance/ability Short Term Goal (STG) Gait in walking boot without AD. STG Duration 6 weeks Half-Way Goal (LTG) Gait without AD or walking boot. LTG Duration 12 weeks LEFS Impairment Lower Extremity Functional Scale Short Term Goal (STG) 60% or greater to demonstrate improvements with functional mobility and tolerance STG Duration 6 weeks Half-Way Goal (LTG) 70% or greater to demonstrate improvements with functional mobility and tolerance LTG Duration 12 weeks Assessment Summary Assessment Pt was able to go up and down stairs without pain with reciprocal pattern. Pt is using walking stick for gait d /t dec push off with LLE and has inc pelvic rotation on that side. She has significantly weaker L gastroc /soleus and is unable to do a single leg heel raise. She has difficulty with balance at this time. Physical Therapy Plan Frequency and Duration Frequency of Treatment 2x/Week Duration of Treatment 12 weeks Plan of Care Start Date 12/04/17 Plan of Care End Date 02/26/18 Next Visit Focus/Plan Next Note Type Treatment Note Next Visit Plan balance board & further balance
--- NOTE | 2018-01-06 11:14 | PT.OTN ---
Current Diagnoses Pain in left foot (01/06/18) Other congenital malformations of lower limb(s), including pelvic girdle (01/06/18) Physical Therapy Treatment Note PT-OP-A Visit Information Start: 12/04/17 13:36 Freq: Status: Active Protocol: Document 01/06/18 10:30 AMB (Rec: 01/06/18 10:45 AMB [id number]) Out-Patient Physical Therapy Visit Information Visit Information Visit Type Treatment Note Visit Note Ended early to conserve remaining units. Visit Start Time 10:30 Visit Stop Time 11:05 Total Visit Minutes 35 Visit Number 8 Number of GOLF BALL INSPECTOR Visits 0 PT-OP-B Current Condition Start: 12/04/17 13:36 Freq: Status: Active Protocol: Document 12/04/17 11:55 RCC (Rec: 12/04/17 17:52 RCC [email or web address]) Current Condition History of Current Condition Onset Date 11/06/17 Current Complaints inability to ambulate, hike History of Current Condition Pt is a 32 y/o female presenting to physical therapy s/p L modified Kidner procedure with navicular anchoring (anchor in place at navicular, surgical repair of posterior tibialis tendon). Surgery was 11/06/2017. Pt notes that she had L medial ankle and foot pain most of my life, and that it got worse as she grew older and had children. She is not currently working. Pt has been NWB in a walking boot since surgery. She uses crutches occasionally, and also uses a knee scooter. Orders to start transitioning to WB in boot, reduce use of AD as strength/ stability permits. Pt would like to get back to hiking again. She has two children but are both of age not requiring being held or carried. Treatment Goals Patient/Caregiver Goals improve walking, get back to hiking. Prior Functional Status Baseline Function- ADL's Independent Baseline Function- Mobility Independent Baseline Function- Gait indep. community ambulator without device Baseline Function- Recreation/Hobbies hiking, backpacking trips. Current Functional Impairments (Reported) Functional Limitations- Mobility/Gait using crutches or knee scooter , no weight bearing Functional Limitations- Recreation/ unable Hobbies PT-OP-C Subjective Start: 12/04/17 13:36 Freq: Status: Active Protocol: Document 01/06/18 10:30 AMB (Rec: 01/06/18 10:45 AMB [id number]) OP-PT Subjective Patient Comments Patient Comments Pt walking in the house without walking stick, still using it in the community. PT-OP-F Manual Assessment Start: 12/04/17 13:36 Freq: Status: Active Protocol: Document 12/04/17 11:55 RCC (Rec: 12/04/17 17:52 RCC [email or web address]) Manual Assessments Soft Tissue Assessment Soft Tissue Mobility Assessment TTP: L posterior tibialis muscle belly, plantar fascia PT-OP-G Mobility & Gait Start: 12/04/17 13:36 Freq: Status: Active Protocol: Document 12/09/17 09:05 DLM (Rec: 12/09/17 17:57 DLM [email or web address]) OP Mobility Evaluation Transfers Sit to Stand independent WBAT left LE, CAM boot Bed to Chair Transfers Independent, CAM boot OP Gait Assessment Gait Gait Assistance Required: Independent Able to Maintain Weight Bearing Status Yes During Gait Assistive Devices Assistive Device None Orthotic/Prosthetic Devices or Brace: Yes Gait Deviations General Gait Pattern Antalgic Factors Limiting Gait Function Factors Limiting Gait Function Decreased Activity Tolerance Decreased Strength Comments Gait Comments no pain reported with WBAT using CAM boot PT-OP-H Neuro Start: 12/04/17 13:36 Freq: Status: Active Protocol: Document 12/04/17 11:55 RCC (Rec: 12/04/17 17:52 RCC [email or web address]) Sensation Evaluation Gross Sensation Gross Sensation WNL PT-OP-K Range of Motion Start: 12/04/17 13:36 Freq: Status: Active Protocol: Document 12/04/17 11:55 RCC (Rec: 12/04/17 17:52 RCC [email or web address]) Ankle and Foot Goniometric Range of Motion Ankle and Foot Measured in Degrees Right Active Ankle/Foot ROM WFL Yes Ankle and Foot ROM Limitations Comments L ankle ROM not tested due to recent surgery. PT-OP-M Strength Start: 12/04/17 13:36 Freq: Status: Active Protocol: Document 12/04/17 11:55 RCC (Rec: 12/04/17 17:52 RCC [email or web address]) Hip Strength Hip Manual Muscle Testing Left Flexion (L2) 4 Good Adduction 4 Good External Rotation 3+ Fair+ Internal Rotation 3+ Fair+ Right Flexion (L2) 5 Normal Adduction 5 Normal External Rotation 4 Good Internal Rotation 4+ Good+ Knee Strength Knee Manual Muscle Testing Left Flexion (S2) 4 Good Extension (L3) 4 Good Right Flexion (S2) 5 Normal Extension (L3) 5 Normal Ankle/Foot Strength Ankle and Foot Manual Muscle Testing Left Comments not tested due to recent surgery Right Dorsiflexion (L4) 5 Normal Inversion 5 Normal Eversion (S1) 5 Normal PT-OP-Q Treatments Start: 12/04/17 13:36 Freq: Status: Active Protocol: Document 01/06/18 10:30 AMB (Rec: 01/06/18 11:14 AMB [email or web address]) Cardio Equipment Bicycle (Upright) Duration (Minutes) 5 Resistance 5 Seat Position 2 Gym Equipment Shuttle Recovery Unilateral Heel Raises Resistance 25#, 37# Reps/Time 20 Therapeutic Exercises Sitting Exercises 7 Sitting Exercise Name Ankle Inversion/Eversion Side left Resistance Lv 2 Equipment Used T-band Reps/Minutes 20 Comments pain-free Standing Exercises gastroc stretch Standing Exercise Name fwd lean stretch Reps/Minutes 30 sec 2 Standing Exercise Name Heel raises Side bilateral Reps/Minutes on stairs Comments shifting as much weight to L especially for decent Manual Therapy Treatment Soft Tissue Mobilization scar Body Location scar Mobilization Type Myofascial Release Rolling Comments w/inversion/eversion PT-OP-R Modalities Start: 12/04/17 13:36 Freq: Status: Active Protocol: Document 12/17/17 10:27 [facility] (Rec: 12/17/17 11:29 [facility] [id number]) Hot Pack/Cold Pack Treatment Cold Pack Location left ankle/foot Patient Position Supine Treatment Duration (minutes) 10 Patient Tolerance Good Comments after activity PT-OP-T Assessment and Plan Start: 12/04/17 13:36 Freq: Status: Active Protocol: Document 01/06/18 10:30 AMB (Rec: 01/06/18 11:14 AMB [email or web address]) Physical Therapy Assessment Assessment Summary Assessment Pt continues to need to progress calf strengthening, no pain in PT, but does notice painful fatigue at the end of the day. Physical Therapy Plan Frequency and Duration Frequency of Treatment 2x/Week Duration of Treatment 12 weeks Plan of Care Start Date 12/04/17 Plan of Care End Date 02/26/18 Next Visit Focus/Plan Next Note Type Treatment Note Next Visit Plan balance board & further balance
--- NOTE | 2018-01-16 12:13 | PT.OTN ---
Current Diagnoses Pain in left foot (01/16/18) Other congenital malformations of lower limb(s), including pelvic girdle (01/16/18) Physical Therapy Treatment Note PT-OP-A Visit Information Start: 12/04/17 13:36 Freq: Status: Active Protocol: Document 01/16/18 11:08 EA (Rec: 01/16/18 11:15 EA [id number]) Out-Patient Physical Therapy Visit Information Visit Information Visit Type Treatment Note Visit Note Ended early to conserve remaining units. Visit Start Time 10:30 Visit Stop Time 11:05 Total Visit Minutes 35 Visit Number 9 Number of DRIFT MINER Visits 0 PT-OP-B Current Condition Start: 12/04/17 13:36 Freq: Status: Active Protocol: Document 12/04/17 11:55 RCC (Rec: 12/04/17 17:52 RCC [email or web address]) Current Condition History of Current Condition Onset Date 11/06/17 Current Complaints inability to ambulate, hike History of Current Condition Pt is a 32 y/o female presenting to physical therapy s/p L modified Kidner procedure with navicular anchoring (anchor in place at navicular, surgical repair of posterior tibialis tendon). Surgery was 11/06/2017. Pt notes that she had L medial ankle and foot pain most of my life, and that it got worse as she grew older and had children. She is not currently working. Pt has been NWB in a walking boot since surgery. She uses crutches occasionally, and also uses a knee scooter. Orders to start transitioning to WB in boot, reduce use of AD as strength/ stability permits. Pt would like to get back to hiking again. She has two children but are both of age not requiring being held or carried. Treatment Goals Patient/Caregiver Goals improve walking, get back to hiking. Prior Functional Status Baseline Function- ADL's Independent Baseline Function- Mobility Independent Baseline Function- Gait indep. community ambulator without device Baseline Function- Recreation/Hobbies hiking, backpacking trips. Current Functional Impairments (Reported) Functional Limitations- Mobility/Gait using crutches or knee scooter , no weight bearing Functional Limitations- Recreation/ unable Hobbies PT-OP-C Subjective Start: 12/04/17 13:36 Freq: Status: Active Protocol: Document 01/16/18 11:08 EA (Rec: 01/16/18 11:15 EA [id number]) OP-PT Subjective Patient Comments Patient Comments Pt reports she had been active at home and compliant to HEP; denies any sharp or throbing pain. Pt states wnats to get back hiking and dancing activties again. Patient Reported Progress Improving PT-OP-F Manual Assessment Start: 12/04/17 13:36 Freq: Status: Active Protocol: Document 12/04/17 11:55 RCC (Rec: 12/04/17 17:52 RCC [email or web address]) Manual Assessments Soft Tissue Assessment Soft Tissue Mobility Assessment TTP: L posterior tibialis muscle belly, plantar fascia PT-OP-G Mobility & Gait Start: 12/04/17 13:36 Freq: Status: Active Protocol: Document 12/09/17 09:05 DLM (Rec: 12/09/17 17:57 DLM [email or web address]) OP Mobility Evaluation Transfers Sit to Stand independent WBAT left LE, CAM boot Bed to Chair Transfers Independent, CAM boot OP Gait Assessment Gait Gait Assistance Required: Independent Able to Maintain Weight Bearing Status Yes During Gait Assistive Devices Assistive Device None Orthotic/Prosthetic Devices or Brace: Yes Gait Deviations General Gait Pattern Antalgic Factors Limiting Gait Function Factors Limiting Gait Function Decreased Activity Tolerance Decreased Strength Comments Gait Comments no pain reported with WBAT using CAM boot PT-OP-H Neuro Start: 12/04/17 13:36 Freq: Status: Active Protocol: Document 12/04/17 11:55 RCC (Rec: 12/04/17 17:52 RCC [email or web address]) Sensation Evaluation Gross Sensation Gross Sensation WNL PT-OP-K Range of Motion Start: 12/04/17 13:36 Freq: Status: Active Protocol: Document 12/04/17 11:55 RCC (Rec: 12/04/17 17:52 RCC [email or web address]) Ankle and Foot Goniometric Range of Motion Ankle and Foot Measured in Degrees Right Active Ankle/Foot ROM WFL Yes Ankle and Foot ROM Limitations Comments L ankle ROM not tested due to recent surgery. PT-OP-M Strength Start: 12/04/17 13:36 Freq: Status: Active Protocol: Document 12/04/17 11:55 RCC (Rec: 12/04/17 17:52 RCC [email or web address]) Hip Strength Hip Manual Muscle Testing Left Flexion (L2) 4 Good Adduction 4 Good External Rotation 3+ Fair+ Internal Rotation 3+ Fair+ Right Flexion (L2) 5 Normal Adduction 5 Normal External Rotation 4 Good Internal Rotation 4+ Good+ Knee Strength Knee Manual Muscle Testing Left Flexion (S2) 4 Good Extension (L3) 4 Good Right Flexion (S2) 5 Normal Extension (L3) 5 Normal Ankle/Foot Strength Ankle and Foot Manual Muscle Testing Left Comments not tested due to recent surgery Right Dorsiflexion (L4) 5 Normal Inversion 5 Normal Eversion (S1) 5 Normal PT-OP-Q Treatments Start: 12/04/17 13:36 Freq: Status: Active Protocol: Document 01/16/18 11:08 EA (Rec: 01/16/18 11:15 EA [email or web address]) Cardio Equipment Recumbent Stepper (Sci-Fit) Duration (Minutes) 5 Resistance 3 Seat Position 7 Other without CAM boot Gym Equipment Shuttle Recovery Unilateral Squats Details 30# Reps/Time x 12 reps x 2 Unilateral Heel Raises Resistance 25#, 37# Reps/Time 20 Therapeutic Exercises Sitting Exercises 7 Sitting Exercise Name Ankle Inversion/Eversion Side left Resistance Lv 2 Equipment Used T-band Reps/Minutes 20 Comments pain-free 5 Sitting Exercise Name BAPS Side left Resistance Lv 4 Comments PF/DF, Inv/Ev, CW/CCW 3 Sitting Exercise Name PF Resistance lvl 5 Standing Exercises 3 Standing Exercise Name Buso: FWD/SDW/BWD shifting Reps/Minutes x 12 reps x 2 sets gastroc stretch Standing Exercise Name fwd lean stretch Reps/Minutes 30 sec gait press at wall Standing Exercise Name gait press at wall for post depression L Reps/Minutes 5 sec hold x3 2 Standing Exercise Name Heel raises Side bilateral Reps/Minutes on stairs Comments shifting as much weight to L especially for decent 1 Standing Exercise Name standing weight shifts onto left without boot Side left Resistance active Reps/Minutes 3 sets Comments working to SLS Manual Therapy Treatment Soft Tissue Mobilization scar Body Location scar Mobilization Type Myofascial Release Rolling Comments w/inversion/eversion PT-OP-R Modalities Start: 12/04/17 13:36 Freq: Status: Active Protocol: Document 01/16/18 11:15 EA (Rec: 01/16/18 11:15 EA [id number]) Hot Pack/Cold Pack Treatment Cold Pack Patient Position Hooklying Treatment Duration (minutes) 10 Patient Tolerance Fair PT-OP-T Assessment and Plan Start: 12/04/17 13:36 Freq: Status: Active Protocol: Document 01/16/18 11:08 PILAR (Rec: 01/16/18 11:15 EA [id number]) Physical Therapy Assessment Assessment Summary Assessment Tolerated treatment well. patient is progress well. Physical Therapy Plan Next Visit Focus/Plan Next Note Type Treatment Note Next Visit Plan balance board & further balance
--- NOTE | 2018-01-23 12:59 | PT.OTN ---
Current Diagnoses Pain in left foot (01/23/18) Other congenital malformations of lower limb(s), including pelvic girdle (01/23/18) Physical Therapy Treatment Note PT-OP-A Visit Information Start: 12/04/17 13:36 Freq: Status: Active Protocol: Document 01/23/18 09:35 EA (Rec: 01/23/18 09:45 EA [id number]) Out-Patient Physical Therapy Visit Information Visit Information Visit Type Treatment Note Visit Start Time 09:00 Visit Stop Time 09:35 Total Visit Minutes 35 Visit Number 10 Number of PRIVATE DUTY AIDE Visits 0 PT-OP-B Current Condition Start: 12/04/17 13:36 Freq: Status: Active Protocol: Document 12/04/17 11:55 RCC (Rec: 12/04/17 17:52 RCC [email or web address]) Current Condition History of Current Condition Onset Date 11/06/17 Current Complaints inability to ambulate, hike History of Current Condition Pt is a 32 y/o female presenting to physical therapy s/p L modified Kidner procedure with navicular anchoring (anchor in place at navicular, surgical repair of posterior tibialis tendon). Surgery was 11/06/2017. Pt notes that she had L medial ankle and foot pain most of my life, and that it got worse as she grew older and had children. She is not currently working. Pt has been NWB in a walking boot since surgery. She uses crutches occasionally, and also uses a knee scooter. Orders to start transitioning to WB in boot, reduce use of AD as strength/ stability permits. Pt would like to get back to hiking again. She has two children but are both of age not requiring being held or carried. Treatment Goals Patient/Caregiver Goals improve walking, get back to hiking. Prior Functional Status Baseline Function- ADL's Independent Baseline Function- Mobility Independent Baseline Function- Gait indep. community ambulator without device Baseline Function- Recreation/Hobbies hiking, backpacking trips. Current Functional Impairments (Reported) Functional Limitations- Mobility/Gait using crutches or knee scooter , no weight bearing Functional Limitations- Recreation/ unable Hobbies PT-OP-C Subjective Start: 12/04/17 13:36 Freq: Status: Active Protocol: Document 01/23/18 09:35 EA (Rec: 01/23/18 09:45 EA [id number]) OP-PT Subjective Patient Comments Patient Comments Pt reports started no impact aerobics exercises and upper body strength exercises at home; states very cautious ankle safety. Denies increase in symptoms; states she is much improve at this time. Patient Reported Progress Improving PT-OP-F Manual Assessment Start: 12/04/17 13:36 Freq: Status: Active Protocol: Document 12/04/17 11:55 RCC (Rec: 12/04/17 17:52 RCC [email or web address]) Manual Assessments Soft Tissue Assessment Soft Tissue Mobility Assessment TTP: L posterior tibialis muscle belly, plantar fascia PT-OP-G Mobility & Gait Start: 12/04/17 13:36 Freq: Status: Active Protocol: Document 12/09/17 09:05 DLM (Rec: 12/09/17 17:57 DLM [email or web address]) OP Mobility Evaluation Transfers Sit to Stand independent WBAT left LE, CAM boot Bed to Chair Transfers Independent, CAM boot OP Gait Assessment Gait Gait Assistance Required: Independent Able to Maintain Weight Bearing Status Yes During Gait Assistive Devices Assistive Device None Orthotic/Prosthetic Devices or Brace: Yes Gait Deviations General Gait Pattern Antalgic Factors Limiting Gait Function Factors Limiting Gait Function Decreased Activity Tolerance Decreased Strength Comments Gait Comments no pain reported with WBAT using CAM boot PT-OP-H Neuro Start: 12/04/17 13:36 Freq: Status: Active Protocol: Document 12/04/17 11:55 RCC (Rec: 12/04/17 17:52 RCC [email or web address]) Sensation Evaluation Gross Sensation Gross Sensation WNL PT-OP-K Range of Motion Start: 12/04/17 13:36 Freq: Status: Active Protocol: Document 12/04/17 11:55 RCC (Rec: 12/04/17 17:52 RCC [email or web address]) Ankle and Foot Goniometric Range of Motion Ankle and Foot Measured in Degrees Right Active Ankle/Foot ROM WFL Yes Ankle and Foot ROM Limitations Comments L ankle ROM not tested due to recent surgery. PT-OP-M Strength Start: 12/04/17 13:36 Freq: Status: Active Protocol: Document 12/04/17 11:55 RCC (Rec: 12/04/17 17:52 RCC [email or web address]) Hip Strength Hip Manual Muscle Testing Left Flexion (L2) 4 Good Adduction 4 Good External Rotation 3+ Fair+ Internal Rotation 3+ Fair+ Right Flexion (L2) 5 Normal Adduction 5 Normal External Rotation 4 Good Internal Rotation 4+ Good+ Knee Strength Knee Manual Muscle Testing Left Flexion (S2) 4 Good Extension (L3) 4 Good Right Flexion (S2) 5 Normal Extension (L3) 5 Normal Ankle/Foot Strength Ankle and Foot Manual Muscle Testing Left Comments not tested due to recent surgery Right Dorsiflexion (L4) 5 Normal Inversion 5 Normal Eversion (S1) 5 Normal PT-OP-Q Treatments Start: 12/04/17 13:36 Freq: Status: Active Protocol: Document 01/23/18 09:35 EA (Rec: 01/23/18 09:45 EA [id number]) Cardio Equipment Recumbent Stepper (Sci-Fit) Duration (Minutes) 5 Resistance 3 Seat Position 7 Other without CAM boot Gym Equipment Shuttle Recovery Unilateral Squats Details 50-75# Reps/Time x 15 reps x 2 Unilateral Heel Raises Resistance 25#, 37# Reps/Time 20 Shuttle Balance 1 Details FWD/BWD tilt, Sideways Comments Red hook, Therapeutic Exercises Standing Exercises 4 Standing Exercise Name SLS Reps/Minutes x 30SH x 5 reps Comments Flat firm to foam with arm challenge 3 Standing Exercise Name Buso: FWD/SDW/BWD shifting Reps/Minutes x 12 reps x 2 sets gastroc stretch Standing Exercise Name fwd lean stretch Reps/Minutes 30 sec 2 Standing Exercise Name Heel raises Side bilateral Reps/Minutes on stairs Comments shifting as much weight to L especially for decent 1 Standing Exercise Name standing weight shifts onto left without boot Side left Resistance active Reps/Minutes 3 sets Comments working to SLS PT-OP-R Modalities Start: 12/04/17 13:36 Freq: Status: Active Protocol: Document 01/23/18 09:45 EA (Rec: 01/23/18 09:45 EA [id number]) Hot Pack/Cold Pack Treatment Cold Pack Patient Position Hooklying Patient Tolerance Good PT-OP-T Assessment and Plan Start: 12/04/17 13:36 Freq: Status: Active Protocol: Document 01/23/18 09:35 EA (Rec: 01/23/18 09:45 EA [id number]) Physical Therapy Assessment Assessment Summary Assessment Patient had improved mobility ; however with very slight limp noted due to insufficient push off. Educated patient with proper gait. Recommends to cont. HEP and avoid high impact exercises. Physical Therapy Plan Next Visit Focus/Plan Next Visit Plan Re-asess and discharge: drained insurance coverage.
--- NOTE | 2018-02-03 11:10 | PT.OTN ---
Current Diagnoses Pain in left foot (02/03/18) Other congenital malformations of lower limb(s), including pelvic girdle (02/03/18) Physical Therapy Treatment Note PT-OP-A Visit Information Start: 12/04/17 13:36 Freq: Status: Active Protocol: Document 02/03/18 10:57 EA (Rec: 02/03/18 11:10 EA [id number]) Out-Patient Physical Therapy Visit Information Visit Information Visit Type Treatment Note Visit Note Discharge summry performed Visit Start Time 10:30 Visit Stop Time 11:15 Total Visit Minutes 45 Visit Number 11 Number of SPONGE PRESS OPERATOR Visits 0 PT-OP-B Current Condition Start: 12/04/17 13:36 Freq: Status: Active Protocol: Document 12/04/17 11:55 RCC (Rec: 12/04/17 17:52 RCC [email or web address]) Current Condition History of Current Condition Onset Date 11/06/17 Current Complaints inability to ambulate, hike History of Current Condition Pt is a 32 y/o female presenting to physical therapy s/p L modified Kidner procedure with navicular anchoring (anchor in place at navicular, surgical repair of posterior tibialis tendon). Surgery was 11/06/2017. Pt notes that she had L medial ankle and foot pain most of my life, and that it got worse as she grew older and had children. She is not currently working. Pt has been NWB in a walking boot since surgery. She uses crutches occasionally, and also uses a knee scooter. Orders to start transitioning to WB in boot, reduce use of AD as strength/ stability permits. Pt would like to get back to hiking again. She has two children but are both of age not requiring being held or carried. Treatment Goals Patient/Caregiver Goals improve walking, get back to hiking. Prior Functional Status Baseline Function- ADL's Independent Baseline Function- Mobility Independent Baseline Function- Gait indep. community ambulator without device Baseline Function- Recreation/Hobbies hiking, backpacking trips. Current Functional Impairments (Reported) Functional Limitations- Mobility/Gait using crutches or knee scooter , no weight bearing Functional Limitations- Recreation/ unable Hobbies PT-OP-C Subjective Start: 12/04/17 13:36 Freq: Status: Active Protocol: Document 02/03/18 10:57 EA (Rec: 02/03/18 11:10 [id number]) OP-PT Subjective Patient Comments Patient Comments Pt reports consistent with HEP and she has been doing low impact aerobic exercises; reports no pain or increase in symptoms. Patient overall feels goo except unable to run and dance yet. Pt would like to know exercises progression at home and when is the safe time to wear high heels. Patient Reported Progress Improving PT-OP-F Manual Assessment Start: 12/04/17 13:36 Freq: Status: Active Protocol: Document 12/04/17 11:55 RCC (Rec: 12/04/17 17:52 RCC [email or web address]) Manual Assessments Soft Tissue Assessment Soft Tissue Mobility Assessment TTP: L posterior tibialis muscle belly, plantar fascia PT-OP-G Mobility & Gait Start: 12/04/17 13:36 Freq: Status: Active Protocol: Document 12/09/17 09:05 DLM (Rec: 12/09/17 17:57 DLM [email or web address]) OP Mobility Evaluation Transfers Sit to Stand independent WBAT left LE, CAM boot Bed to Chair Transfers Independent, CAM boot OP Gait Assessment Gait Gait Assistance Required: Independent Able to Maintain Weight Bearing Status Yes During Gait Assistive Devices Assistive Device None Orthotic/Prosthetic Devices or Brace: Yes Gait Deviations General Gait Pattern Antalgic Factors Limiting Gait Function Factors Limiting Gait Function Decreased Activity Tolerance Decreased Strength Comments Gait Comments no pain reported with WBAT using CAM boot PT-OP-H Neuro Start: 12/04/17 13:36 Freq: Status: Active Protocol: Document 12/04/17 11:55 RCC (Rec: 12/04/17 17:52 RCC [email or web address]) Sensation Evaluation Gross Sensation Gross Sensation WNL PT-OP-K Range of Motion Start: 12/04/17 13:36 Freq: Status: Active Protocol: Document 12/04/17 11:55 RCC (Rec: 12/04/17 17:52 RCC [email or web address]) Ankle and Foot Goniometric Range of Motion Ankle and Foot Measured in Degrees Right Active Ankle/Foot ROM WFL Yes Ankle and Foot ROM Limitations Comments L ankle ROM not tested due to recent surgery. PT-OP-M Strength Start: 12/04/17 13:36 Freq: Status: Active Protocol: Document 12/04/17 11:55 RCC (Rec: 09/26/18 17:52 RCC [email or web address]) Hip Strength Hip Manual Muscle Testing Left Flexion (L2) 4 Good Adduction 4 Good External Rotation 3+ Fair+ Internal Rotation 3+ Fair+ Right Flexion (L2) 5 Normal Adduction 5 Normal External Rotation 4 Good Internal Rotation 4+ Good+ Knee Strength Knee Manual Muscle Testing Left Flexion (S2) 4 Good Extension (L3) 4 Good Right Flexion (S2) 5 Normal Extension (L3) 5 Normal Ankle/Foot Strength Ankle and Foot Manual Muscle Testing Left Comments not tested due to recent surgery Right Dorsiflexion (L4) 5 Normal Inversion 5 Normal Eversion (S1) 5 Normal PT-OP-Q Treatments Start: 12/04/17 13:36 Freq: Status: Active Protocol: Document 02/03/18 10:57 EA (Rec: 02/03/18 11:10 EA [id number]) Cardio Equipment Elliptical Duration (Minutes) 6 Resistance 4 Other Push off emphasis Gym Equipment Shuttle Recovery Bilateral Squats Details 25: plyometrics Unilateral Squats Details 50-75# Reps/Time x 15 reps x 2 Unilateral Heel Raises Resistance 25#, 37# Reps/Time 20 Shuttle Balance 1 Details FWD/BWD tilt, Sideways Comments Red hook: squat, bungee ball throw Therapeutic Exercises Standing Exercises 5 Standing Exercise Name FWD lunges Reps/Minutes x 3 lines 4 Standing Exercise Name SLS Reps/Minutes x 30SH x 5 reps Comments Flat: Ball toss/bounce upper chest 3 Standing Exercise Name Buso: FWD/SDW/BWD shifting Reps/Minutes x 12 reps x 2 sets gastroc stretch Standing Exercise Name fwd lean stretch Reps/Minutes 30 sec 2 Standing Exercise Name Heel raises Side bilateral Reps/Minutes on stairs Comments shifting as much weight to L especially for decent 1 Standing Exercise Name Floor square: coordination on toes. Reps/Minutes x 4 lengths Self-Care/Home Management Treatment Education Patient Education Home Exercise Program Pain Management Safety Other Education Discussed safe exercises progression PT-OP-R Modalities Start: 12/04/17 13:36 Freq: Status: Active Protocol: Document 02/03/18 10:57 EA (Rec: 02/03/18 11:10 EA [id number]) Hot Pack/Cold Pack Treatment Cold Pack Patient Position Hooklying Patient Tolerance Good PT-OP-T Assessment and Plan Start: 12/04/17 13:36 Freq: Status: Active Protocol: Document 02/03/18 10:57 EA (Rec: 02/03/18 11:10 EA [id number]) Physical Therapy Assessment Goals LEFS Impairment Lower Extremity Functional Scale Short Term Goal (STG) 60% or greater to demonstrate improvements with functional mobility and tolerance STG Duration 6 weeks Alf Goal (LTG) 70% or greater to demonstrate improvements with functional mobility and tolerance LTG Duration 12 weeks Assessment Summary Assessment Pt is discharge today due to insurance limitation. However, patient exhibits functional ROM/strength and mobility but limited to low impact activity only. Overall patient is improved. I recommended to cont HEP and advised safe aerobic exercises to perform at home. Physical Therapy Plan Discharge Physical Therapy Discharge Reasons Patient Request Discharge Comments Insurance limitation
== END 2018-02-24 10:43 ==
LOC: PHYS 10:30
PROVIDERS: PCP Nurse Practitioner; Visit Provider Podiatrist
DX: Q74.2 Other congenital malformations of lower limb(s), including pelvic girdle (principal); M79.672 Pain in left foot
CPT/HCPCS: 97110; 97140; 97161; 97535

== ENCOUNTER 2018-04-12 23:00 | Emergency (ER) | payer OTHER, MEDICAID, SELFPAY ==
[2018-04-12 23:14] VITALS: BP 106/65; PULSE 101; RESP 18; TEMP 38.4; O2SAT 99; BMI 23.6
[2018-04-12 23:30] VITALS: BP 118/67; PULSE 118; RESP 16; O2SAT 98
[2018-04-12] MEDS: ONDANSETRON 4 MG/2 ML INJ IV (23:59)
[2018-04-12] MEDS: SODIUM CHLORIDE 0.9% 1,000 ML 1000 ML IV (23:59)
[2018-04-13 00:16] LABS: Add Manual Diff / Slide Review NO; Basophils Absolute Auto 0 /uL (0-100); Basophils Percent Auto 0.3 % (0-2); Eosinophils Absolute Auto 0 /uL (0-450); Eosinophils Percent Auto 0.1 % (2-4); Hematocrit 42.6 % (36-46); Hemoglobin 14.1 g/dL (12.0-16.0); Lymphocytes Absolute Auto 1000 /uL (1100-4500); Mean Corpuscular HGB Conc 33.1 % (30-36); Mean Corpuscular Hemoglobin 30.5 PG (26-34); Mean Corpuscular Volume 92.1 fL (80-100); Monocytes Absolute Auto 300 /uL (0-900); Monocytes Percent Auto 5.2 % (3-14); Neutrophils Absolute Auto 5200 /uL (1500-7000); Neutrophils Percent Auto 79.4 % (50-75); Platelet Count 151 X10^3/uL (150-400); Red Blood Cell Count 4.62 X10^6/uL (4.0-5.2); Red Cell Distribution Width 13.5 % (11.6-14.8); White Blood Cell Count 6.5 X10^3/uL (4.5-11.0)
[2018-04-13 00:25] LABS: BUN Creatinine Ratio 17.1 (6-22); Blood Urea Nitrogen 12 mg/dL (7-17); Calcium 9.4 mg/dL (8.4-10.2); Carbon Dioxide 19 mmol/L (22-32); Chloride 104 mmol/L (98-107); Estimated Glomerular Filt Rate > 60.0 mL/min (>60); Glucose 115 mg/dL (70-100); HEMOLYSIS 29 (0-50); Potassium 3.3 mmol/L (3.4-5.1); Sodium 137 mmol/L (137-145)
[2018-04-13 00:30] VITALS: BP 112/54; PULSE 76; RESP 16; O2SAT 98
[2018-04-13 01:00] VITALS: BP 114/58; PULSE 73; RESP 17; O2SAT 99
[2018-04-13 01:24] VITALS: BP 114/58; PULSE 80; RESP 16; TEMP 38.9; O2SAT 97
[2018-04-13 01:28] VITALS: TEMP 38.9
[2018-04-13] MEDS: IBUPROFEN 400 MG TABLET 800 MG PO (01:28)
[2018-04-13] MEDS: ACETAMINOPHEN 325 MG TABLET 975 MG PO (01:28)
--- NOTE | 2018-04-13 01:53 | ED.NAVMDI ---
HPI - Nausea/Vomiting/Diarrhea General Chief complaint: Nausea/Vomiting/Diarrhea Stated complaint: dry heaving and vomiting,back pain Time Seen by Provider: 04/13/18 01:27 Source: patient Mode of arrival: ambulatory Limitations: no limitations History of Present Illness HPI Narrative: Patient complains of fevers, chills, body aches, sore throat, cough, runny nose, nausea, and vomiting. She states her in to her family has had the same illness, and she is the last one to get it. She has had symptoms for 2 days. Patient states she is otherwise completely healthy. She has not been taking any medication for her symptoms. No abdominal pain or chest pain. No other complaints at this time. Related Data Home Medications Medication Instructions Recorded Confirmed levonorgestrel [Mirena] 52 mg INTRAU DIRECTED #0 07/18/16 02/17/18 thyroid (pork) [Nature-Throid] 65 mg PO DAILY 11/06/17 02/17/18 Previous Rx's Medication Instructions Recorded cholecalciferol (vitamin D3) 50,000 unit PO QWEEK #30 cap 03/27/17 oseltamivir [Tamiflu] 75 mg PO BID 5 Days #10 cap 04/13/18 Allergies Allergy/AdvReac Type Severity Reaction Status Date / Time No Known Drug Allergies Allergy Verified 04/13/18 01:36 Review of Systems Constitutional Denies chills, Denies fever(s), Reports headache(s), Denies lethargy and Denies weakness Eyes Denies change in vision, Denies eye discharge, Denies irritation and Denies loss of vision ENT Ears, Nose, Mouth, and Throat: Denies change in voice, Reports headache(s), Denies neck pain and Reports sore throat Cardiovascular Denies chest pain, Denies irregular heart rhythm, Denies lightheadedness, Denies palpitations, Denies dyspnea, Denies dyspnea on exertion and Denies orthopnea Respiratory Reports cough, Denies dyspnea, Denies dyspnea on exertion and Denies wheezing Gastrointestinal Gastrointestinal: Denies abdominal pain, Denies change in bowel habits, Denies diarrhea, Reports nausea and Reports vomiting Genitourinary Denies hematuria, Denies flank pain, Denies urinary incontinence and Denies urinary urgency Musculoskeletal Denies neck pain Integumentary/Breasts Denies pruritus, Denies erythema, Denies rash and Denies wounds Neurologic Denies confusion, Reports headache(s), Denies loss of vision and Denies weakness Psychiatric Denies anxiety, Denies confusion, Denies depression, Denies homicidal ideation and Denies suicidal ideation Endocrine Denies palpitations Hematologic/Lymphatic Denies easy bruising Allergic/Immunologic Denies wheezing [facility] Medical History Pain of left foot (Chronic) 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) Constipation (Acute) Fatigue (Acute) Rosacea (Acute) Weight loss, intentional (Acute) Right ankle pain (Chronic 11/08/14) Right ankle sprain (Resolved 11/08/14) Social History household members: significant other Smoking Status: Former smoker Social History household members: significant other Smoking Status: Former smoker Exam Initial Vital Signs Initial Vital Signs: Vital Signs Temperature 101.2 F H 04/12/18 23:14 Pulse Rate 101 H 04/12/18 23:14 Respiratory Rate 18 04/12/18 23:14 Blood Pressure 106/65 04/12/18 23:14 Pulse Oximetry 99 04/12/18 23:14 Const General: cooperative and well developed Nutritional Appearance: well nourished Orientation: alert, awake, oriented x3 and not confused Other: Patient appears somewhat uncomfortable, but nontoxic. HENMT Head: normocephalic and atraumatic Ears: external ears normal Nose: external nose normal and No nasal discharge Face and sinus: face symmetric and No dry mucous membranes Mouth: oral mucosae normal and moist mucous membranes Teeth and gingiva: dentition normal Throat: tonsils normal and uvula midline Eyes General: appearance normal, both eyes and all related structures Eyelids: eyelids normal Conjunctivae: conjunctivae normal Sclera: sclerae normal Pupils: PERRL EOM: EOM intact bilaterally Neck Neck: normal visual inspection, trachea midline, No lymphadenopathy, No midline deformity and No JVD Lymphatic: No lymphedema Chest Chest: normal inspection of the chest Resp Effort & Inspection: normal respiratory effort, able to speak in complete sentences, no respiratory distress and no use of accessory muscles Auscultation: clear to auscultation bilaterally, no rales, no rhonchi and no wheezes Cardio Rate: regular rate Rhythm: regular rhythm Heart Sounds: no click, no gallops, no murmurs and no rubs Pulses: normal peripheral pulses GI Inspection: non-distended Palpation: soft, no hepatosplenomegaly, No guarding, No pulsatile mass and No tender Auscultation: normal bowel sounds Back/Spine/Pelvis Back: No CVA tenderness Cervical Spine: cervical ROM normal and No pain with cervical ROM Thoracic/Lumbar Spine: thoracic and lumbar spine normal to inspection Skin General: no rashes or lesions noted, No jaundice and No petechiae Neuro General: alert, oriented x3, gait normal and no focal motor deficits Speech: speech normal Extrem General: full ROM, no clubbing, cyanosis or edema, no pedal edema and no calf tenderness Psych Appearance: well kempt Mental Status: mental status grossly normal Attitude: cooperative Thought Content: normal and suicidality Judgment: judgment good Course Course Narrative: Patient was treated symptomatically with IV fluids and antipyretics. She was found to be positive for influenza. We have discussed the expected duration of symptoms for influenza, as well as symptomatic management home. We have also discussed the usual indications for return. Patient is hemodynamically stable, and I feel she is stable for discharge home. She has been started on Tamiflu. Orders Ordered: Discontinued Medications Acetaminophen (Tylenol) 975 mg PO NOW ONE Stop: 04/13/18 01:26 Last Admin: 04/13/18 01:28 Dose: 975 mg Sodium Chloride (Normal Saline 0.9%) 1,000 mls @ 1,000 mls/hr IV BOLUS ONE Stop: 04/13/18 00:51 Last Infusion: 04/13/18 01:23 Dose: 0 mls/hr Admin: 04/12/18 23:59 Dose: 1,000 mls/hr Ibuprofen (Advil) 800 mg PO NOW ONE Stop: 04/13/18 01:26 Last Admin: 04/13/18 01:28 Dose: 800 mg Ondansetron HCl (Zofran) 4 mg IV NOW ONE Stop: 04/12/18 23:53 Last Admin: 04/12/18 23:59 Dose: 4 mg Oseltamivir Phosphate (Tamiflu) 75 mg PO NOW ONE Stop: 04/13/18 01:50 Last Admin: 04/13/18 02:02 Dose: 75 mg Vital Signs - 8 hr 04/12/18 23:14 04/13/18 01:24 04/13/18 01:28 Temperature 101.2 F H 102.1 F H 102.1 F H Pulse Rate 101 H 80 Respiratory Rate 18 16 Blood Pressure 106/65 Blood Pressure [Left Arm] 114/58 L Pulse Oximetry 99 97 MDM - Nausea/Vomiting/Diarrhea Medical Records Attestation: I reviewed the patient's medical records. Lab Data Attestation: I reviewed the patient's lab results. Result diagrams: 04/12/18 23:32 04/12/18 23:32 Lab Results 04/12/18 04/12/18 04/12/18 Range/Units 23:32 23:32 23:32 WBC 6.5 (4.5-11.0) X10^3/uL RBC 4.62 (4.0-5.2) X10^6/uL Hgb 14.1 (12.0-16.0) g/dL Hct 42.6 (36-46) % MCV 92.1 (80-100) fL MCH 30.5 (26-34) PG MCHC 33.1 (30-36) % RDW 13.5 (11.6-14.8) % Plt Count 151 (150-400) X10^3/uL Neut % (Auto) 79.4 H (50-75) % Lymph % (Auto) 15.0 L (25-40) % [place]isco[place] % (Auto) 5.2 (3-14) % Eos % (Auto) 0.1 L (2-4) % Baso % (Auto) 0.3 (0-2) % Neut # (Auto) 5200 (4637-1980) /uL Lymph # (Auto) 1000 L (2515-7375) /uL [place] # (Auto) 300 (0-900) /uL Eos # (Auto) 0 (0-450) /uL Baso # (Auto) 0 (0-100) /uL Sodium 137 (137-145) mmol/L Potassium 3.3 L (3.4-5.1) mmol/L Chloride 104 (98-107) mmol/L Carbon Dioxide 19 L (22-32) mmol/L BUN 12 (7-17) mg/dL Creatinine 0.70 (0.52-1.04) mg/dL Estimated GFR > 60.0 (>60) mL/min BUN/Creatinine Ratio 17.1 (6-22) Glucose 115 H (70-100) mg/dL Calcium 9.4 (8.4-10.2) mg/dL Influenza A & B (PCR) Positive, type a A (Negative) Point of Care Testing Test Results Negative Urine Dip Bedside Urine Glucose Negative Bedside Urine Bilirubin - Negative Bedside Urine Ketone +++ 80 Urine Specific Murchison 1.025 Bedside Urine Occult Blood +++ Bedside Urine pH 6.0 Bedside Urine Protein + 30 Bedside Urine Urobilinogen +/- 1mg Bedside Urine Nitrite - Negative Bedside Urine Leukocytes - Negative Esterase Discharge Plan Departure Patient Disposition: Home Clinical Impression: Influenza A Discharge Date/Time: 04/13/18 02:15 Interventions: ED Discharge Assessment Last Done: 04/13/18 02:14 Instructions: DI for Influenza -- Adult Activity Restrictions/Additional Instructions: Your influenza test was positive. This is a common virus that goes around this time of year, and will go away on its own; however it does tend to last longer than other viruses, and can cause symptoms for up to 2 weeks. We have started you on Tamiflu, which can help to fight the virus off. However, your body ultimately will have to get rid of the viral infection itself. Prescriptions: New oseltamivir [Tamiflu] 75 mg capsule 75 mg PO BID 5 Days Qty: 10 RF: 0 No Action levonorgestrel [Mirena] 1 EACH intrauterine device 52 mg INTRAU DIRECTED Qty: 0 RF: 0 cholecalciferol (vitamin D3) 50,000 UNIT capsule 50,000 unit PO QWEEK Qty: 30 RF: 0 thyroid (pork) [Nature-Throid] 65 mg Tablet 65 mg PO DAILY RF: 0 Referrals: Tierra Simental ND [Primary Care Provider] -
--- NOTE | 2018-04-13 01:56 | PC.NURSE ---
urine micro never got ordered. provider aware and ok with patient to be discharged. no new orders at this time.
[2018-04-13] MEDS: OSELTAMIVIR 75 MG CAPSULE PO (02:02)
[2018-04-13 02:09] VITALS: BP 101/55; PULSE 72; RESP 16; TEMP 38.8; O2SAT 96
== END 2018-04-13 02:15 | disposition home or self-care (01) ==
PROVIDERS: Emergency Provider Emergency Medicine; Family Provider Naturopath; PCP Naturopath
DX: J10.1 Influenza due to other identified influenza virus with other respiratory manifestations (principal)
CPT/HCPCS: 36591; 80048; 81003; 81025; 85025; 87400; 96361; 96374; 99283; 99284; J2405

== ENCOUNTER → 2018-06-18 18:31 | Outpatient (CLI) | payer OTHER, MEDICAID, SELFPAY ==
--- NOTE | 2018-06-18 | DI.MRI.S_ITS ---
PROCEDURE: MRFOOT LT WO CON INDICATIONS: LEFT FOOT PAIN TECHNIQUE: Noncontrast sagittal T1 spin echo and T2 fast spin echo with fat saturation, long-axis T1 spin echo and T2 fast spin echo with fat saturation, short-axis T1 spin echo and T2 fast spin echo with fat saturation through the forefoot. COMPARISON: [facility], CR, XR FOOT 3+ VIEWS LEFT, 05/29/2018, 13:15. FINDINGS: Image quality: Excellent. Bones and joints: There is subtle marrow edema involving proximal shaft of fourth metatarsal bone with subtle linear hypointense signal in the area of the edema concerning for an nondisplaced stress fracture in this area. Postsurgical changes are noted involving medial portion of navicular bone. The sesamoid bones appear in expected positions, without internal edema. No metatarsophalangeal joint degeneration. No intraosseous lesions. Soft tissues: The visualized plantar foot muscles demonstrate normal signal and bulk. Visualized flexor and extensor tendons appear intact, without tenosynovitis. The distal insertions of the peroneus brevis and longus tendons appear intact. The principal Lisfranc ligament appears intact. No soft tissue ganglion cysts or bursal fluid collections. Sagittal images demonstrate no evidence for plantar plate tears. IMPRESSION: #1. Finding is concerning for subtle incomplete stress fracture involving proximal shaft of fourth metatarsal bone with edema and subtle internal linear hypointense signal. No cortical disruption or periosteal reaction. No other area of abnormal marrow signal. Post surgical changes over the medial aspect of navicular bone. #2. The visualized left foot tendons and ligaments are grossly intact. #3. No gross muscle or soft tissue abnormality. Dictated by: Levi Barone M.D. on 06/19/2018 at 10:25 Approved by: Levi Barone M.D. on 06/19/2018 at 10:33
== END ==
PROVIDERS: Visit Provider Podiatrist
DX: M79.672 Pain in left foot (principal); M25.475 Effusion, left foot
CPT/HCPCS: 73718

== ENCOUNTER 2018-12-14 13:18 | Emergency (ER) | payer OTHER, MEDICAID, SELFPAY ==
[2018-12-14 13:20] VITALS: BP 110/64; PULSE 74; RESP 22
--- NOTE | 2018-12-14 13:29 | DI.CT.S_ITS ---
PROCEDURE: CT HEAD/BRAIN WO CON INDICATIONS: code stroke - TPA candidate TECHNIQUE: Noncontrast 4.5 mm thick angled axial sections acquired from the foramen magnum to the vertex, with coronal and sagittal reformats. For radiation dose reduction, the following was used: automated exposure control, adjustment of mA and/or kV according to patient size. COMPARISON: None. FINDINGS: Image quality: Diagnostic.. CSF spaces: Basal cisterns are patent. No extra-axial fluid collections. Ventricles are normal in size and shape. Brain: No midline shift. No intracranial masses or hemorrhage. De La Rosa-white matter interface is normal. 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 Skull and face: Calvarium and visualized facial bones are intact, without suspicious lesions. Sinuses: Visualized sinuses and mastoids are clear. IMPRESSION: Negative head CT. No acute intracranial hemorrhage. Dictated by: Maximino Coffey M.D. on 12/14/2018 at 12:52 Approved by: Maximino Coffey M.D. on 12/14/2018 at 12:53
--- NOTE | 2018-12-14 13:52 | DI.CT.S_ITS ---
PROCEDURE: CT ANGIO HEAD AND NECK INDICATIONS: stroke-like symptoms TECHNIQUE: Pre-contrast 4.5 mm thick sections acquired from the foramen magnum to the vertex. After the administration of intravenous contrast, 1 mm thick sections acquired from the aortic arch through the [place] of [place]. Post-contrast 4.5 mm thick sections then re-acquired from the foramen magnum to the vertex. 3-dimensional [id number]-hpetcthgug (MIP) and/or volume rendering reformats were acquired of the central intracranial vasculature and neck separately. COMPARISON: [facility], CT, CT HEAD/BRAIN WO CON, 12/14/2018, 13:33. FINDINGS: Image quality: Excellent. BRAIN: CSF spaces: Ventricles are normal in size and shape. Basal cisterns are patent. No extra-axial fluid collections. Brain: No midline shift. No intracranial bleeds or masses. De La Rosa-white matter interface appears intact. 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 No suspicious enhancement within the brain is appreciated. Skull and face: Calvarium and facial bones appear intact, without suspicious lesions. Orbits appear normal. Sinuses: Sinuses and mastoids are clear. HEAD CT ANGIOGRAPHY: Anterior circulation: Intracranial internal carotid arteries are normal in size and flow. The flow within the paired anterior cerebral arteries is normal and symmetric. The flow within the middle cerebral arteries is normal and symmetric. The anterior communicating artery is seen. No aneurysms are seen. Posterior circulation: Visualized portions of the vertebral arteries demonstrate normal caliber, and join to form a normal appearing basilar artery. Flow within the posterior cerebral arteries is normal and symmetric. No aneurysms are seen. NECK CT ANGIOGRAPHY: Carotid system: The great vessels demonstrate a conventional anatomy as they arise from the aortic arch. The origins of the common carotid arteries appear patent. The common carotid arteries demonstrate normal caliber and courses. The bifurcation regions are both widely patent. The internal carotid arteries demonstrate normal calibers and courses. Posterior circulation: The origins of the vertebral arteries both appear widely patent. The more superior extracranial portions of both vertebral arteries also demonstrate normal courses and calibers. They join to form a normal appearing basilar artery. Soft tissues: Visualized neck soft tissues demonstrate no suspicious abnormalities. The lung apices are clear. Residual thymus tissue is appreciated within the anterior mediastinum. The thyroid gland is not enlarged. The parotids and submandibular glands appear to be morphologically within normal limits. Bones: No suspicious bony lesions. Visualized cervical spine appears normally aligned. IMPRESSION: 1. No acute intracranial hemorrhage. 2. No parenchymal lesions or abnormal parenchymal enhancement of the brain. 3. Intracranial arteries are widely patent without significant atherosclerosis, occlusion, aneurysm, or evidence of vascular malformation. 3. The carotid and vertebral arteries within the neck are widely patent without significant atherosclerosis, focal narrowing, vascular malformation, aneurysm, or dissection. 5. Residual thymus tissue within the anterior mediastinum. Any quantitative measurements of stenosis were performed using NASCET criteria. Dictated by: Maximino Coffey M.D. on 12/14/2018 at 14:55 Approved by: Maximino Coffey M.D. on 12/14/2018 at 14:57
[2018-12-14 14:20] LABS: Add Manual Diff / Slide Review NO; Basophils Absolute Auto 0 /uL (0-100); Basophils Percent Auto 0.3 % (0-2); Eosinophils Absolute Auto 200 /uL (0-450); Eosinophils Percent Auto 3.4 % (2-4); Hematocrit 37.5 % (36-46); Hemoglobin 12.6 g/dL (12.0-16.0); Lymphocytes Absolute Auto 2000 /uL (1100-4500); Lymphocytes Percent Auto 31.7 % (25-40); Mean Corpuscular HGB Conc 33.5 % (30-36); Mean Corpuscular Volume 92.5 fL (80-100); Monocytes Absolute Auto 600 /uL (0-900); Monocytes Percent Auto 9.8 % (3-14); Neutrophils Absolute Auto 3400 /uL (1500-7000); Neutrophils Percent Auto 54.8 % (50-75); Platelet Count 214 X10^3/uL (150-400); Red Blood Cell Count 4.06 X10^6/uL (4.0-5.2); Red Cell Distribution Width 12.8 % (11.6-14.8); White Blood Cell Count 6.2 X10^3/uL (4.5-11.0)
[2018-12-14 14:27] LABS: Prothrombin Time 11.8 SECONDS (10.1-12.7)
[2018-12-14 14:30] VITALS: BP 118/78; PULSE 60; RESP 17; O2SAT 96
[2018-12-14 14:31] LABS: Alanine Aminotransferase 20 IU/L (9-52); Albumin 4.6 g/dL (3.5-5.0); Albumin Globulin Ratio 1.6 (1.0-2.8); Alkaline Phosphatase 38 U/L (38-126); Aspartate Aminotransferase 27 IU/L (14-36); BUN Creatinine Ratio 31.7 (6-22); Blood Urea Nitrogen 19 mg/dL (7-17); Calcium 9.1 mg/dL (8.4-10.2); Carbon Dioxide 25 mmol/L (22-32); Chloride 103 mmol/L (98-107); Creatine Kinase 91 U/L (30-135); Estimated Glomerular Filt Rate > 60.0 mL/min (>60); Globulin 2.9 g/dL (1.7-4.1); Glucose 84 mg/dL (70-100); HEMOLYSIS 43 (0-50); Potassium 3.7 mmol/L (3.4-5.1); Sodium 139 mmol/L (137-145); Total Protein 7.5 g/dL (6.3-8.2)
[2018-12-14] MEDS: diphenhydrAMINE 50 MG/ML VIAL 12.5 MG IV (14:35)
[2018-12-14] MEDS: KETOROLAC 60 MG/2 ML VIAL 30 MG IV (14:35)
[2018-12-14] MEDS: PROCHLORPERAZINE 10 MG/2 ML VIAL IV (14:36)
[2018-12-14] MEDS: SODIUM CHLORIDE 0.9% 1,000 ML 1000 ML IV (14:36)
[2018-12-14 14:43] LABS: Troponin I < 0.012 ng/mL (0.01-0.034)
[2018-12-14 15:00] VITALS: BP 105/63; PULSE 56; RESP 17; O2SAT 99
[2018-12-14 15:30] VITALS: BP 104/43; PULSE 60; RESP 16; O2SAT 100
--- NOTE | 2018-12-14 15:35 | ED_ITS ---
HPI - Neuro Symptoms/Deficit General Chief Complaint: Neuro Symptoms/Deficit Stated Complaint: Tingling on left side, can't see out of left eye Time Seen by Provider: 12/14/18 13:41 Source: patient and family Mode of arrival: Ambulatory History of Present Illness HPI Narrative: Patient comes emergency department complaining of an episode of dizziness, headache, and visual phenomena that happened at work this afternoon. Patient states she was working at her usual, nonexertional job, when she began to notice a headache and visual flasher. She states that she got up and noticed that she was also feeling dizzy, which she describes as a combination of lightheadedness and a spinning feeling. Patient states she was able to ambulate and did not have any other focal deficits. She states the symptoms lasted for only about a minute, but the headache persisted afterward. Patient states she is otherwise healthy. She denies any history of any sort of cerebral ischemia and herself, and also denies any family members with CVA at a young age. Patient states she was feeling fine when she woke up this morning and is feeling well other than the headache, now. No other complaints at this time. On Anticoagulants: No Related Data Home Medications Medication Instructions Recorded Confirmed levonorgestrel [Mirena] 52 mg INTRAU DIRECTED #0 07/18/16 02/17/18 thyroid (pork) [Nature-Throid] 65 mg PO DAILY 11/06/17 02/17/18 Previous Rx's Medication Instructions Recorded cholecalciferol (vitamin D3) 50,000 unit PO QWEEK #30 cap 03/27/17 Allergies Allergy/AdvReac Type Severity Reaction Status Date / Time No Known Drug Allergies Allergy Verified 04/13/18 01:36 Review of Systems Constitutional Constitutional: Denies chills, Denies fatigue, Denies fever(s), Denies frequent falls, Reports headache(s), Denies lethargy and Denies weakness Eyes Eyes: Denies change in vision, Denies eye discharge, Denies irritation, Denies loss of vision, Reports other visual disturbances and Reports seeing flashes ENT Ears, Nose, Mouth, and Throat: Denies change in voice, Reports dizziness, Reports headache(s), Denies neck pain, Denies sore throat and Denies throat swelling Cardiovascular Cardiovascular: Denies chest pain, Denies irregular heart rhythm, Reports lightheadedness, Denies palpitations, Denies dyspnea, Denies dyspnea on exertion and Denies orthopnea Respiratory Respiratory: Denies cough, Denies dyspnea, Denies dyspnea on exertion and Denies wheezing Gastrointestinal Gastrointestinal: Denies abdominal pain, Denies change in bowel habits, Denies diarrhea, Denies nausea and Denies vomiting Genitourinary Genitourinary: Denies hematuria, Denies flank pain, Denies urinary incontinence and Denies urinary urgency Musculoskeletal Musculoskeletal: Denies back pain, Denies muscle weakness, Denies neck pain, Denies numbness and Denies tingling Integumentary/Breasts Skin/Breast: Denies pruritus, Denies erythema, Denies rash and Denies wounds Neurologic Neurologic: Denies behavioral changes, Denies confusion, Reports dizziness, Denies frequent falls, Reports headache(s), Denies loss of vision, Denies numbness, Denies tingling and Denies weakness Psychiatric Psychiatric: Denies anxiety, Denies behavioral changes, Denies confusion, Denies depression, Denies homicidal ideation and Denies suicidal ideation Endocrine Endocrine: Denies fatigue, Denies flushing and Denies palpitations Hematologic/Lymphatic Hematologic/Lymphatic: Denies easy bruising Allergic/Immunologic Allergic/Immunologic: Denies urticaria, Denies throat swelling and Denies wheezing Exam Initial Vital Signs Initial Vital Signs: Vital Signs Pulse Rate 74 12/14/18 13:20 Respiratory Rate 22 12/14/18 13:20 Blood Pressure 110/64 12/14/18 13:20 Const General: cooperative and well developed Nutritional Appearance: well nourished Orientation: alert, awake, oriented x3 and not confused [facility] Head: normocephalic and atraumatic Ears: external ears normal and TM's normal bilaterally Nose: external nose normal and No nasal discharge Face and sinus: sinuses nontender, face symmetric, no sinus tenderness and No dry mucous membranes Mouth: oral mucosae normal and moist mucous membranes Teeth and gingiva: dentition normal Throat: tonsils normal and uvula midline Eyes General: appearance normal, both eyes and all related structures Eyelids: eyelids normal Conjunctivae: conjunctivae normal Sclera: sclerae normal Pupils: PERRL EOM: EOM intact bilaterally Neck Neck: normal visual inspection, trachea midline, No lymphadenopathy, No midline deformity and No JVD Lymphatic: No lymphedema Chest Chest: normal inspection of the chest Resp Effort & Inspection: normal respiratory effort, able to speak in complete sentences, no respiratory distress and no use of accessory muscles Auscultation: clear to auscultation bilaterally, no rales, no rhonchi and no wheezes Cardio Rate: regular rate Rhythm: regular rhythm Heart Sounds: no click, no gallops, no murmurs and no rubs Pulses: normal peripheral pulses GI Inspection: non-distended Palpation: soft, no hepatosplenomegaly, No guarding, No pulsatile mass and No tender Auscultation: normal bowel sounds Back/Spine/Pelvis Back: No CVA tenderness Cervical Spine: cervical ROM normal and No pain with cervical ROM Thoracic/Lumbar Spine: thoracic and lumbar spine normal to inspection Skin General: no rashes or lesions noted, No jaundice and No petechiae Neuro General: alert, awake, oriented x3, gait normal and no focal motor deficits Cranial Nerves: CN's II-XI intact bilaterally Cognition: normal cognition Speech: speech normal Motor: muscle tone normal throughout and strength 5/5 throughout Sensory Exam: no sensory deficits noted Extrem General: full ROM, no clubbing, cyanosis or edema, no pedal edema and no calf tenderness Psych Appearance: well kempt Mental Status: mental status grossly normal Attitude: cooperative Thought Content: normal and suicidality Judgment: judgment good Course Course Course Narrative: Patient was brought to the emergency department via EMS as a ?code stroke? period she was worked up with CT head without contrast and CTA head and neck, all of which were unremarkable. The patient was not found to be in atrial fibrillation, but normal sinus rhythm, and as such, I felt the likelihood of clot embolism was highly unlikely. Labs were also unremarkable. After full evaluation, I felt it most likely that the patient had a migraine with visual aura, rather than a CVA or TIA, for which she is extremely low risk. I have discussed with the patient the need for follow-up, as well as principles of symptomatic management home. We have also discussed the usual indications for return. Orders Ordered: Discontinued Medications Diphenhydramine HCl (Benadryl) 12.5 mg IV NOW ONE Stop: 12/14/18 14:17 Last Admin: 12/14/18 14:35 Dose: 12.5 mg Documented by: AZEB Sodium Chloride (Normal Saline 0.9%) 1,000 mls @ 1,000 mls/hr IV BOLUS ONE Stop: 12/14/18 15:15 Last Infusion: 12/14/18 16:31 Dose: 0 mls/hr Documented by: Admin: 12/14/18 14:36 Dose: 1,000 mls/hr Documented by: AZEB Ketorolac Tromethamine (Toradol) 30 mg IV NOW ONE Stop: 12/14/18 14:17 Last Admin: 12/14/18 14:35 Dose: 30 mg Documented by: AZEB Prochlorperazine (Compazine) 10 mg IV NOW ONE Stop: 12/14/18 14:17 Last Admin: 12/14/18 14:36 Dose: 10 mg Documented by: AZEB Vital Signs Vital signs: Vital Signs - 8 hr 12/14/18 13:20 12/14/18 14:30 12/14/18 15:00 Pulse Rate 74 60 56 L Respiratory Rate 22 17 17 Blood Pressure 110/64 Blood Pressure [Left Arm] 118/78 105/63 Pulse Oximetry 96 99 12/14/18 15:30 Pulse Rate 60 Respiratory Rate 16 Blood Pressure Blood Pressure [Left Arm] 104/43 L Pulse Oximetry 100 MDM - Neuro Symptoms/Deficit Medical Records Attestation: I reviewed the patient's medical records. Lab Data Attestation: I reviewed the patient's lab results. Result diagrams: 12/14/18 14:10 12/14/18 14:10 Labs: Lab Results 12/14/18 12/14/18 12/14/18 Range/Units 14:10 14:10 14:10 WBC 6.2 (4.5-11.0) X10^3/uL RBC 4.06 (4.0-5.2) X10^6/uL Hgb 12.6 (12.0-16.0) g/dL Hct 37.5 (36-46) % MCV 92.5 (80-100) fL MCH 31.0 (26-34) PG MCHC 33.5 (30-36) % RDW 12.8 (11.6-14.8) % Plt Count 214 (150-400) X10^3/uL Neut % (Auto) 54.8 (50-75) % Lymph % (Auto) 31.7 (25-40) % Stark % (Auto) 9.8 (3-14) % Eos % (Auto) 3.4 (2-4) % Baso % (Auto) 0.3 (0-2) % Neut # (Auto) 3400 (9299-8898) /uL Lymph # (Auto) 2000 (3763-6282) /uL Stark # (Auto) 600 (0-900) /uL Eos # (Auto) 200 (0-450) /uL Baso # (Auto) 0 (0-100) /uL PT 11.8 (10.1-12.7) SECONDS INR 1.0 (0.9-1.3) Sodium 139 (137-145) mmol/L Potassium 3.7 (3.4-5.1) mmol/L Chloride 103 (98-107) mmol/L Carbon Dioxide 25 (22-32) mmol/L BUN 19 H (7-17) mg/dL Creatinine 0.60 (0.52-1.04) mg/dL Estimated GFR > 60.0 (>60) mL/min BUN/Creatinine Ratio 31.7 H (6-22) Glucose 84 (70-100) mg/dL Calcium 9.1 (8.4-10.2) mg/dL Total Bilirubin 1.0 (0.2-1.3) mg/dL AST 27 (14-36) IU/L ALT 20 (9-52) IU/L Alkaline Phosphatase 38 (38-126) U/L Total Creatine Kinase 91 (30-135) U/L CK-MB (CK-2) TNP CK-MB (CK-2) Rel Index TNP Troponin I < 0.012 (0.01-0.034) ng/mL Total Protein 7.5 (6.3-8.2) g/dL Albumin 4.6 (3.5-5.0) g/dL Globulin 2.9 (1.7-4.1) g/dL Albumin/Globulin Ratio 1.6 (1.0-2.8) Point of Care Testing Test Results Negative Glucose POC 79 Urine Dip Bedside Urine Glucose Negative Bedside Urine Bilirubin - Negative Bedside Urine Ketone - Negative Urine Specific [place] 1.010 Bedside Urine Occult Blood + Bedside Urine pH 6.0 Bedside Urine Protein - Negative Bedside Urine Urobilinogen - Negative Bedside Urine Nitrite - Negative Bedside Urine Leukocytes - Negative Esterase Imaging Data CTA head and neck: Radiologist's impression: PROCEDURE: CT ANGIO HEAD AND NECK INDICATIONS: stroke-like symptoms TECHNIQUE: Pre-contrast 4.5 mm thick sections acquired from the foramen magnum to the vertex. After the administration of intravenous contrast, 1 mm thick sections acquired from the aortic arch through the [place] of [place]. Post-contrast 4.5 mm thick sections then re- acquired from the foramen magnum to the vertex. 3-dimensional m agdtaw-oifckuyfq-uvbnohhjmz (MIP) and/or volume rendering reformats were acquired of the central intracranial vasculature and neck separately. COMPARISON: [facility], CT, CT HEAD/BRAIN WO CON, 12/14/2018, 13:33. FINDINGS: Image quality: Excellent. BRAIN: CSF spaces: Ventricles are normal in size and shape. Basal cisterns are patent. No extra-axial fluid collections. Brain: No midline shift. No intracranial bleeds or masses. De La Rosa-white matter interface appears intact. 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 No suspicious enhancement within the brain is appreciated. Skull and face: Calvarium and facial bones appear intact, without suspicious lesions. Orbits appear normal. Sinuses: Sinuses and mastoids are clear. HEAD CT ANGIOGRAPHY: Anterior circulation: Intracranial internal carotid arteries are normal in size and flow. The flow within the paired anterior cerebral arteries is normal and symmetric. The flow within the middle cerebral arteries is normal and symmetric. The anterior communicating artery is seen. No aneurysms are seen. Posterior circulation: Visualized portions of the vertebral arteries demonstrat e normal caliber, and join to form a normal appearing basilar artery. Flow within the posterior cerebral arteries is normal and symmetric. No aneurysms are seen. NECK CT ANGIOGRAPHY: Carotid system: The great vessels demonstrate a conventional anatomy as they arise from the aortic arch. The origins of the common carotid arteries appear patent. The common carotid arteries demonstrate normal caliber and courses. The bifurcation regions are both widely patent. The internal carotid arteries demonstrate normal calibers and courses. Posterior circulation: The origins of the vertebral arteries both appear widely patent. The more superior extracranial portions of both vertebral arteries also demonstrate normal courses and calibers. They join to form a normal appearing basilar artery. Soft tissues: Visualized neck soft tissues demonstrate no suspicious abnormalities. The lung apices are clear. Residual thymus tissue is appreciated within the anterior mediastinum. The thyroid gland is not enlarged. The parotids and submandibular glands appear to be morphologically within normal limits. Bones: No suspicious bony lesions. Visualized cervical spine appears normally aligned. IMPRESSION: 1. No acute intracranial hemorrhage. 2. No parenchymal lesions or abnormal parenchymal enhancement of the brain. 3. Intracranial arteries are widely patent without significant atherosclerosis, occlusion, aneurysm, or evidence of vascular malformation. 3. The carotid and vertebral arteries within the neck are widely patent without significant atherosclerosis, focal narrowing, vascular malformation, aneurysm, or dissection. 5. Residual thymus tissue within the anterior mediastinum. Any quantitative measurements of stenosis were performed using NASCET criteria. Dictated by: Maximino Coffey M.D. on 12/14/2018 at 14:55 Approved by: Maximino Coffey M.D. on 12/14/2018 at 14:57 CT scan - head: Radiologist's impression: PROCEDURE: CT HEAD/BRAIN WO CON INDICATIONS: code stroke - TPA candidate TECHNIQUE: Noncontrast 4.5 mm thick angled axial sections acquired from the foramen magnum to the vertex, with coronal and sagittal reformats. For radiation dose reduction, the following was used: automated exposure control, adjustment of mA and/or kV according to patient size. COMPARISON: None. FINDINGS: Image quality: Diagnostic.. CSF spaces: Basal cisterns are patent. No extra-axial fluid collections. Ventricles are normal in size and shape. Brain: No midline shift. No intracranial masses or hemorrhage. De La Rosa-white m atter interface is normal. 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 Skull and face: Calvarium and visualized facial bones are intact, without suspicious lesions. Sinuses: Visualized sinuses and mastoids are clear. IMPRESSION: Negative head CT. No acute intracranial hemorrhage. Dictated by: Maximino Coffey M.D. on 12/14/2018 at 12:52 Approved by: Maximino Coffey M.D. on 12/14/2018 at 12:53 Discharge Plan Departure Patient Disposition: Home Clinical Impression: Migraine with visual aura Discharge Date/Time: 12/14/18 16:32 Instructions: DI for Migraine Activity Restrictions/Additional Instructions: Your labs and CT scans look good. There is no evidence of a stroke at this time, and your very low risk for this, given your age and lack of other risk factors. Your symptoms are most consistent with a migraine with visual phenomena, something that commonly accompanies migraines. As such, your vision should normalize with in the next 12 hours. Your vision testing has been normal here in the emergency department. If you find that you still have a perception of ?blind spots?, then you will need to follow up with Ophthalmology, as re commended below. Prescriptions: No Action levonorgestrel [Mirena] 1 EACH intrauterine device 52 mg INTRAU DIRECTED Qty: 0 RF: 0 cholecalciferol (vitamin D3) 50,000 UNIT capsule 50,000 unit PO QWEEK Qty: 30 RF: 0 thyroid (pork) [Nature-Throid] 65 mg Tablet 65 mg PO DAILY RF: 0 Referrals: [facility] [Provider Group]
[2018-12-14 15:50] VITALS: BP 104/54; PULSE 73; RESP 14; O2SAT 99
[2018-12-14 16:00] VITALS: BP 94/51; PULSE 60; RESP 17; O2SAT 97
== END 2018-12-14 16:32 | disposition home or self-care (01) ==
PROVIDERS: Emergency Provider Emergency Medicine
DX: G43.109 Migraine with aura, not intractable, without status migrainosus (principal); R07.9 Chest pain, unspecified
CPT/HCPCS: 36415; 70450; 70496; 70498; 80053; 81003; 81025; 82550; 82962; 84484; 85025; 85610; 93005; 93041; 96361; 96374; 96375; 99285; J0780; J1200; J1885; Q9967

== ENCOUNTER → 2019-03-17 08:37 | Outpatient (CLI) | payer OTHER, MEDICAID, SELFPAY | PROVIDERS: Visit Provider Physician Assistant | DX: J02.9 Acute pharyngitis, unspecified (principal) | CPT/HCPCS: 87070 ==

== ENCOUNTER → 2019-04-09 12:12 | Outpatient (CLI) | payer OTHER, MEDICAID, SELFPAY ==
[2019-04-09 14:37] LABS: Thyroid Stimulating Hormone 0.88 uIU/mL (0.47-4.68)
== END ==
PROVIDERS: PCP Naturopath; Visit Provider Naturopath
DX: E06.3 Autoimmune thyroiditis (principal)
CPT/HCPCS: 36415; 84443

== ENCOUNTER → 2020-08-29 10:51 | Outpatient (CLI) | payer OTHER, MEDICAID, SELFPAY ==
[2020-08-29 13:16] LABS: Thyroid Stimulating Hormone 1.64 uIU/mL (0.47-4.68)
== END ==
PROVIDERS: PCP Naturopath; Referring Provider Naturopath; Visit Provider Naturopath
DX: E06.3 Autoimmune thyroiditis (principal)
CPT/HCPCS: 36415; 84443

== ENCOUNTER → 2021-02-08 15:56 | Outpatient (CLI) | payer OTHER, MEDICAID, SELFPAY ==
[2021-02-08 17:26] LABS: COVID19 -Nasal RAPID Negative (Negative)
== END ==
PROVIDERS: Visit Provider Obstetrics & Gynecology
DX: Z01.812 Encounter for preprocedural laboratory examination (principal); Z20.822 Contact with and (suspected) exposure to COVID-19
CPT/HCPCS: 87635; C9803

== ENCOUNTER 2021-02-09 06:39 | Day surgery (SDC) | payer OTHER, MEDICAID, SELFPAY ==
[2021-02-07 08:47] VITALS: BMI 27.6
[2021-02-09] VITALS (8 sets, daily range): BP systolic 87–106; BP diastolic 38–66; PULSE 54–83; RESP 11–17; TEMP 36–36.8; O2SAT 97–100; BMI 27.6
--- NOTE | 2021-02-09 | PATH_ITS ---
[facility] Accession Number: [id number] . 01 Material submitted: . fallopian tube - BILATERAL FALLOPIAN TUBE SEGMENTS . 02 Diagnosis: Bilateral Fallopian Tube Segments, Tubal Ligation: Complete cross sections of segments of fallopian tube x2. Negative for atypia or malignancy. MRV 02/13/2021 1035 Local . 02 Electronically signed: . Milly Griggs MD, Pathologist NPI- [id number] . 01 Gross description: . Received in formalin labeled with the patient's name and bilateral fallopian tube segments are two rogel-brown fallopian tubes with fimbriated ends measuring 6.0 cm in length x 0.6 cm in diameter and 5.4 cm in length x 0.5 cm in diameter. No abnormalities are identified. Compounder cross sections and fimbriated ends are submitted in cassettes A1 and A2, one cassette per tube. (FRANSISCO:[id number]) /[facility] 02/10/2021 1704 Local . 02 Pathologist provided ICD-10: Z30.2 . 02 CPT . 737000 Performed at: 01 [facility] [address], [place], [place] [id number] MD Patrick Calhoun MD Phone: [phone] Performed at: 02 [facility] [address] [place], [place] [id number] MD Madison Nieto MD Phone: [phone]
[2021-02-09] MEDS: LACTATED RINGERS 1,000 ML 100 ML IV (07:15)
[2021-02-09] MEDS: ACETAMINOPHEN 325 MG TABLET 975 MG PO (07:43)
--- NOTE | 2021-02-09 07:47 | PM.HP.1 ---
History of Present Illness History of Present Illness Date Patient Seen: 02/09/21 Time Patient Seen: 07:48 Chief complaint: LAP ALMA DELIA SALPINGECTOMY Narrative: Patient is a 35 year old who desires permanent sterilization Patient History Medical History (Updated 02/09/21 @ 07:49 by Valarie Vallejo MD) Accessory navicular bone of left foot Constipation Fatigue Pain of left foot Right ankle pain (11/08/14) Right ankle sprain (11/08/14) Rosacea Weight loss, intentional Surgical History (Updated 02/07/21 @ 08:59 by Nadira Roman RN) Hx of foot surgery (11/06/17) Family & Social History Social History: household members significant other Tobacco & Substance use: Smoking Status Former smoker alcohol intake current alcohol intake frequency 0-2 drinks per day Substance Use Type does not use Meds Home Medications and Allergies Home Medications Medication Instructions Recorded Confirmed Type cholecalciferol (vitamin D3) 1,250 50,000 unit PO QWEEK #30 cap 03/27/17 02/09/21 Rx mcg (50,000 unit) capsule thyroid [Nature Thyroid] PO 12/06/20 12/06/20 History Allergies Allergy/AdvReac Type Severity Reaction Status Date / Time No Known Drug Allergies Allergy Verified 02/09/21 07:00 Exam Vital Signs (past 8 hours): - 02/09/21 07:07 Temperature 96.8 F L Pulse Rate 62 Respiratory Rate 16 Blood Pressure 97/53 L Pulse Oximetry 100 Oxygen Delivery Method Room Air Narrative Exam Narrative: HEENT: No thyromegaly, no anterior cervical or supraclavicular lymphadenopathy. Lungs:Clear to auscultation bilaterally, no wheezes. Cardiovascular: Regular rate and rhythm, no murmurs, rubs, or gallops. Abdomen: No scars. No hepatosplenomegaly. No masses palpable. External genitalia: Normal Vagina: Normal Cervix: Normal Bimanual exam: 6 Week size uterus. Mobile. No adnexal masses or tenderness. Ext: No edema Assessment & Plan Assessment and plan (1) Sterilization: Status: Acute Plan: Assessment: 35 year old who desires permanent sterilization Plan: Laparoscopic bilateral salpingectomy The risks, benefits and alternatives of the procedure were explained to the patient. The risks including bleeding, infection and injury to the bowel, bladder or ureters. She understands these risks and agrees to proceed. A full PAR-Q was held and consent form was signed. Covid test negative Time Spent With Patient Critical Care time: I spent a total of [] minutes of critical care time on this patient's care today; this time is exclusive of procedural time.
--- NOTE | 2021-02-09 07:52 | PM.PREOP ---
Pre-operative Note COVID-19 COVID-19 status: Negative Result date/Date tested (Pos, Neg/Pending): 02/08/21 Interval Note History & Physical reviewed/Exam performed by Physician: Yes Changes to H&P: No H&P completed within 30 days and has changed as indicated here:: 02/09/21
--- NOTE | 2021-02-09 08:07 | SUR.OPER ---
Lithotomy on padded OR bed, head on pillow, arms secured on padded arm boards at <90 degrees abduction. Legs secured in padded yellow fins stirrups.
[2021-02-09] MEDS: BUPIVACAINE 0.5% (PF) VIAL 30 ML INJ (08:17)
[2021-02-09] MEDS: EPINEPHrine 1 MG/ML 0.15 MG IM (08:18)
--- NOTE | 2021-02-09 08:46 | PM.GYNOP.1 ---
Operative Date/Time/Diagnoses Date of procedure: 02/09/21 Time of procedure: 08:47 Pre-op diagnosis: Desires permanent sterilization Post-op diagnosis: same Procedure & Clinicians Procedure: Procedures Operation Date: 02/09/21 07:45 Actual Procedure Side Surgeon p Laparoscopic Salpingectomy Bilateral Valarie Vallejo MD Indications: Desires permanent sterilization Surgeon: Valarie Vallejo Anesthesia Type: General and Local Operative Notes Findings: 6 week size anteverted uterus Normal tubes and ovaries Normal liver and gallbladder Normal appendix Closure Type: primary Specimen(s): left tube and right tube Estimated blood loss (mL): 5 Blood products transfused: none Procedure in detail: After informed consent was obtained, the patient was taken to the operating room where she was placed in the dorsal supine position. After adequate general endotracheal anesthesia was achieved, she was placed in the dorsal lithotomy position, and prepped and draped in the usual sterile fashion. A time-out was performed. A bivalve speculum was placed into the vagina and the anterior lip of the cervix was grasped with a single-tooth tenaculum. The cervical os was sequentially dilated until the Zumi uterine manipulator could pass easily into the endometrial cavity. The single-tooth tenaculum was removed from the anterior lip of the cervix. The bivalve speculum was removed from the vagina. Attention was then turned to the abdomen where 6 cc of 0.5% Marcaine with epinephrine were injected in the umbilical fold. A 5 mm incision was made. The Veress needle was placed into the peritoneal cavity, and its placement confirmed by aspiration drop test. The abdominal cavity was insufflated with 3.2 L of CO2. The Veress needle was removed, and a 5 mm trocar was placed without difficulty. Initial inspection of the pelvis and abdomen revealed the findings noted above. Two other incisions were made, 4 cm lateral to the midline after 6 cc of 0.5% Marcaine with epinephrine were injected. These were 5 mm incisions. Two 5 mm trocars were placed under direct visualization. The right tube was grasped with an atraumatic grasper. Using the PlasmaKinetic was settings of 40 w, the mesosalpinx on the right side was cauterized and cut all the way down to the cornua of the uterus. The tube was amputated at the cornua. Hemostasis was achieved. The tube was placed into the anterior cul-de-sac. This procedure was repeated on the patient's left tube. Hemostasis was achieved. The tubes were removed through the lateral trocars. The pelvis was examined and was found to be hemostatic. The instruments were removed from the abdomen. The CO2 was allowed to escape. The incisions were closed with 4-0 Monocryl in a subcuticular fashion. Steri-Strips and Allevyn dressings were placed. The Zumi uterine manipulator was removed from the uterus. Sponge, lap, and instrument counts were correct x2. The patient tolerated the procedure well, and was taken to PACU in stable condition. Complications: none Post-operative Condition: stable Disposition: PACU Plan for aftercare: Home after recovery
[2021-02-09] MEDS: OXYCODONE IR 5 MG TABLET PO ×2 (09:20→09:58)
== END 2021-02-09 10:11 | disposition home or self-care (01) ==
PROVIDERS: Referring Provider Obstetrics & Gynecology; Visit Provider Obstetrics & Gynecology
PROC: 0UT74ZZ Resection of Bilateral Fallopian Tubes, Percutaneous Endoscopic Approach (ICD-10-PCS; CPT 58661; principal; 2021-02-09 07:45)
DX: Z30.2 Encounter for sterilization (principal); E03.9 Hypothyroidism, unspecified
CPT/HCPCS: 58661; J0171; J0330; J1100; J1885; J2250; J2405; J2704; J3010

== ENCOUNTER → 2021-10-04 14:09 | Outpatient (CLI) | payer OTHER, MEDICAID, SELFPAY ==
[2021-10-04 14:39] LABS: Add Manual Diff / Slide Review NO; Basophils Absolute Auto 0 /uL (0-100); Basophils Percent Auto 0.6 % (0-2); Eosinophils Absolute Auto 200 /uL (0-450); Hematocrit 35.1 % (36-46); Lymphocytes Absolute Auto 1900 /uL (1100-4500); Lymphocytes Percent Auto 24.9 % (25-40); Mean Corpuscular HGB Conc 34.1 % (30-36); Mean Corpuscular Volume 91.1 fL (80-100); Monocytes Absolute Auto 700 /uL (0-900); Monocytes Percent Auto 9.3 % (3-14); Neutrophils Absolute Auto 4800 /uL (1500-7000); Neutrophils Percent Auto 62.2 % (50-75); Platelet Count 233 X10^3/uL (150-400); Red Blood Cell Count 3.85 X10^6/uL (4.0-5.2); Red Cell Distribution Width 13.1 % (11.6-14.8); White Blood Cell Count 7.7 X10^3/uL (4.5-11.0)
[2021-10-04 14:53] LABS: Alanine Aminotransferase 16 IU/L (<35); Albumin 4.7 g/dL (3.5-5.0); Albumin Globulin Ratio 1.9 (1.0-2.8); Alkaline Phosphatase 44 U/L (38-126); Aspartate Aminotransferase 25 IU/L (14-36); BUN Creatinine Ratio 28.8 (6-22); Bilirubin Total 0.9 mg/dL (0.2-1.3); Blood Urea Nitrogen 19 mg/dL (7-17); Carbon Dioxide 23 mmol/L (22-32); Chloride 105 mmol/L (98-107); Cholesterol 177 mg/dL (140-199); Estimated Glomerular Filt Rate > 60 mL/min (>60); Globulin 2.5 g/dL (1.7-4.1); Glucose 78 mg/dL (70-100); HDL Cholesterol 76 mg/dL (40-60); HEMOLYSIS < 15 (0-50); LDL Cholesterol Calculated 92 mg/dL (<100); Potassium 3.8 mmol/L (3.4-5.1); Sodium 138 mmol/L (137-145); Total Protein 7.2 g/dL (6.3-8.2); Triglycerides 45 mg/dL (35-150)
[2021-10-04 15:23] LABS: Thyroid Stimulating Hormone 3.11 uIU/mL (0.47-4.68)
== END ==
PROVIDERS: Referring Provider Naturopath; Visit Provider Naturopath
DX: Z00.00 Encounter for general adult medical examination without abnormal findings (principal); E03.9 Hypothyroidism, unspecified
CPT/HCPCS: 36415; 80053; 80061; 84443; 85025

== ENCOUNTER → 2023-06-10 16:59 | Outpatient (CLI) | payer OTHER, MEDICAID, SELFPAY | PROVIDERS: Visit Provider Physician Assistant | DX: J02.9 Acute pharyngitis, unspecified (principal) | CPT/HCPCS: 87070; 87880 ==

== ENCOUNTER → 2024-03-26 09:37 | Outpatient (CLI) | payer OTHER, SELFPAY | PROVIDERS: Referring Provider Physician Assistant; Visit Provider Physician Assistant | DX: J02.9 Acute pharyngitis, unspecified (principal) | CPT/HCPCS: 87880 ==